=== PATIENT | female | born 1985 | race American Indian/Alaskan Native ===

== ENCOUNTER 2017-01-28 09:20 | Emergency (ER) | payer BC, OTHER ==
[2017-01-28 10:33] LABS: Basophils % (Auto) 0.7 % (0.0-1.8); Hematocrit 40.1 % (30.3-42.9); Hemoglobin 13.2 gm/dl (10.1-14.3); Mean Corpuscular HGB Conc 33 % (30-34); Mean Corpuscular Hemoglobin 29 pg (28-32); Mean Corpuscular Volume 88 fl (79-97); Platelet Count 304 K/mm3 (140-440); Red Blood Count 4.56 M/mm3 (3.65-5.03); Red Cell Distribution Width 13.9 % (13.2-15.2); White Blood Count 4.3 K/mm3 (4.5-11.0)
[2017-01-28 11:59] LABS: Bilirubin,Urine NEG (Negative); Blood,Urine LG (Negative); Ketones,Urine NEG (Negative); Leukocyte Esterase,Urine NEG (Negative); Mucus,Urine 1+ /HPF; Nitrite,Urine NEG (Negative); Urobilinogen,Urine < 2.0 mg/dL (<2.0)
[2017-01-28 12:02] LABS: RBC,Urine > 182.0 /HPF (0.0-6.0)
--- NOTE | 2017-01-28 12:41 | Ultrasound Report ---
ULTRASOUND OB LESS THAN 14 WEEKS FETUS ULTRASOUND OB TRANSVAGINAL HISTORY: Vaginal bleeding. TECHNIQUE: Transabdominal and transvaginal ultrasound with color doppler interrogation. No comparison. The uterus is anteverted and measures 9.0 x 5.2 x 5.1 cm. No uterine mass is appreciated. The endometrial stripe measures 5 mm. No intrauterine gestational sac or heart tones could be demonstrated. The cervix is closed. An approximate 5 mm nabothian cyst is noted. The right ovary measures 2.9 x 1.6 x 3.2 cm. No mass or cyst. The left ovary measures 4.1 x 2.1 x 3.4 cm. An ill-defined 9 mm cystic lesion is identified in the left ovary. This may represent a small cyst or dominant follicle. No pole or ring of fire on color Doppler. IMPRESSION: No intrauterine is visualized at this time. This could represent a spontaneous . Please note an ectopic is not entirely excluded at this time. Please correlate with the patient's clinical presentation and laboratory values.
--- NOTE | 2017-01-28 13:51 | Emergency Department Report ---
Entered by SHAHZAD COTTO, acting as scribe for RONNELL MITCHELL NP. ED Female HPI - General Chief complaint: Urogenital-Female Stated complaint: POSSIBLE MISCARRIAGE Source: patient Mode of arrival: Ambulatory Limitations: No Limitations - History of Present Illness Initial comments: 31 y/o female that is about 4 weeks with a PMHx of asthma presents to the ED c/o bright red vaginal bleeding with clots that began last night, worsening this morning at 10:00. Patient reports associated 10/10 sharp low back pain x last night and lower abdominal pain x this morning, but she denies nausea, vomiting, fever, and chills. Patient states she confirmed her with an at home test. Notes her OB is Dr. Yoan Dove. She states she hasn't been seen by her OB for this , because they usually see women that are at least 6/7 weeks . A1. Notes she bled during the early term of her first born's . LMP 12/26/2016. Reports she has irregular cycles. Denies a possible exposure to an STD. Allergic to doxycline, sulfamethoxazole, and trimethoprim. MD Complaint: vaginal bleeding -: Last night Location: suprapubic Radiation: non-radiating Severity: mild Severity scale (0 -10): 3 Quality: aching Consistency: constant Improves with: none Worsens with: none Are you Now?: Yes Last Menstrual Period: 12/26/16 EDC: 10/02/17 Associated Symptoms: denies other symptoms, vaginal bleeding, abdominal pain, other (low back pain). denies: vaginal discharge, nausea/vomiting, fever/chills , headaches, loss of appetite, dysuria, hematuria, rash, seizure, shortness of breath, syncope, weakness - Related Data Sexually active: Yes : 3 Para: 1 () A: 1 (by choice) Previous Rx's Medication Instructions Recorded Last Taken Type Acetaminophen/Codeine 1 tab PO Q6H PRN #10 tab 07/23/14 Unknown Rx [Acetaminophen-Codeine #3 TAB] Phenazopyridine [Pyridium] 200 mg PO PC #5 tablet 07/23/14 Unknown Rx Acetaminophen [Acetaminophen TAB] 1,000 mg PO Q6HR PRN #60 tablet 01/28/17 Unknown Rx Allergies Allergy/AdvReac Type Severity Reaction Status Date / Time doxycycline Allergy Unknown Verified 07/23/14 10:20 sulfamethoxazole Allergy Itching Verified 07/23/14 10:20 [From Bactrim] trimethoprim [From Bactrim] Allergy Itching Verified 07/23/14 10:20 ED Review of Systems Comment: All other systems reviewed and negative Constitutional: denies: chills, fever Eyes: denies: eye pain, eye discharge, vision change ENT: denies: ear pain, throat pain Respiratory: denies: cough, shortness of breath, wheezing Cardiovascular: denies: chest pain, palpitations Endocrine: no symptoms reported Gastrointestinal: abdominal pain (lower abdominal pain). denies: nausea, vomiting, diarrhea Genitourinary: other (vaginal bleeding). denies: urgency, dysuria, frequency, hematuria, discharge, abnormal menses, dyspareunia Musculoskeletal: back pain (low back pain). denies: joint swelling, arthralgia , myalgia Skin: denies: rash, lesions Neurological: denies: headache, weakness, numbness, paresthesias, confusion, abnormal gait, vertigo Psychiatric: denies: anxiety, depression Hematological/Lymphatic: denies: easy bleeding, easy bruising ED Past Medical Hx - Past Medical History Previous Medical History?: Yes Hx Asthma: Yes - Surgical History Past Surgical History?: Yes Additional Surgical History: - Family History Family history: no significant - Social History Smoking Status: Never Smoker Substance Use Type: Alcohol - Medications Home Medications: Home Medications Medication Instructions Recorded Confirmed Last Taken Type Acetaminophen/Codeine 1 tab PO Q6H PRN #10 tab 07/23/14 Unknown Rx [Acetaminophen-Codeine #3 TAB] Phenazopyridine [Pyridium] 200 mg PO PC #5 tablet 07/23/14 Unknown Rx Acetaminophen [Acetaminophen TAB] 1,000 mg PO Q6HR PRN #60 tablet 01/28/17 Unknown Rx ED Physical Exam - General Limitations: No Limitations General appearance: alert, in no apparent distress - Head Head exam: Present: atraumatic, normocephalic - Eye Eye exam: Present: normal appearance Pupils: Present: normal accommodation - ENT ENT exam: Present: normal exam, mucous membranes moist, normal external ear exam - Neck Neck exam: Present: normal inspection, full ROM - Respiratory Respiratory exam: Present: normal lung sounds bilaterally. Absent: respiratory distress, wheezes, rales, rhonchi, stridor - Cardiovascular Cardiovascular Exam: Present: regular rate, normal rhythm, normal heart sounds. Absent: systolic murmur, diastolic murmur, rubs, gallop - GI/Abdominal GI/Abdominal exam: Present: soft, normal bowel sounds. Absent: distended, tenderness, guarding, rebound, rigid, organomegaly, mass, bruit, pulsatile mass , hernia - Rectal Rectal exam: Present: deferred - External exam: Present: normal external exam. Absent: erythema, swelling, lesions, lacerations, ecchymosis, bleeding Speculum exam: Present: vaginal bleeding (mild vaginal bleeding mild clots). Absent: vaginal discharge, foreign body, tissue, laceration Bi-manual exam: Absent: cervical motion tendernes, adnexal mass, uterine enlargement, uterine tenderness - Extremities Exam Extremities exam: Present: normal inspection, full ROM - Back Exam Back exam: Present: normal inspection, full ROM. Absent: CVA tenderness (R), CVA tenderness (L) - Neurological Exam Neurological exam: Present: alert, oriented X3 - Psychiatric Psychiatric exam: Present: normal affect, normal mood - Skin Skin exam: Present: warm, dry, intact. Absent: rash ED Course Vital Signs 01/28/17 09:53 Temperature 98.1 F Pulse Rate 77 Respiratory 14 Rate Blood Pressure 129/84 O2 Sat by Pulse 100 Oximetry ED Medical Decision Making - Lab Data Result diagrams: 01/28/17 10:04 Laboratory Tests 01/28/17 01/28/17 01/28/17 10:04 10:04 10:04 WBC 4.3 L RBC 4.56 Hgb 13.2 Hct 40.1 MCV 88 MCH 29 MCHC 33 RDW 13.9 Plt Count 304 Lymph % (Auto) 40.3 H [place] % (Auto) 9.6 H Eos % (Auto) 1.0 Baso % (Auto) 0.7 Lymph # 1.7 [place] # 0.4 Eos # 0.0 Baso # 0.0 Seg Neutrophils % 48.4 Seg Neutrophils # 2.1 HCG, Quant 23.41 H Urine Color Urine Turbidity Urine pH Ur Specific [place] Urine Protein Urine Glucose (UA) Urine Ketones Urine Blood Urine Nitrite Urine Bilirubin Urine Urobilinogen Ur Leukocyte Esterase Urine WBC (Auto) Urine RBC (Auto) U Epithel Cells (Auto) Urine Mucus Blood Type A POSITIVE Antibody Screen Negative 01/28/17 11:42 WBC RBC Hgb Hct MCV MCH MCHC RDW Plt Count Lymph % (Auto) [place] % (Auto) Eos % (Auto) Baso % (Auto) Lymph # [place] # Eos # Baso # Seg Neutrophils % Seg Neutrophils # HCG, Quant Urine Color Yellow Urine Turbidity Slightly-cloudy Urine pH 6.0 Ur Specific [place] 1.025 Urine Protein 30 mg/dl Urine Glucose (UA) Neg Urine Ketones Neg Urine Blood Lg Urine Nitrite Neg Urine Bilirubin Neg Urine Urobilinogen < 2.0 Ur Leukocyte Esterase Neg Urine WBC (Auto) 2.0 Urine RBC (Auto) > 182.0 U Epithel Cells (Auto) 1.0 Urine Mucus 1+ Blood Type Antibody Screen - Medical Decision Making 31 y/o female that is about 4 weeks with a PMHx of asthma presents to the ED c/o bright red vaginal bleeding with clots that began last night, worsening this morning at 10:00. Patient reports associated 10/10 sharp low back pain x last night and lower abdominal pain x this morning, but she denies nausea, vomiting, fever, and chills. Patient states she confirmed her with an at home test. Notes her OB is Dr. Yoan Dove. She states she hasn't been seen by her OB for this , because they usually see women that are at least 6/7 weeks . A1. Notes she bled during the early term of her first born's . LMP 12/26/2016. Reports she has irregular cycles. Denies a possible exposure to an STD. Allergic to doxycline, sulfamethoxazole, and trimethoprim. 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 Dove , pt given discharge instructions on spontaneous and symptoms to return to emergency, pt verbalized agreement and understanding with discharge plan. 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
[2017-01-28 13:57] VITALS: BP 124/90
== END 2017-01-28 14:04 | disposition home or self-care (01) ==
LOC: ED 09:20
DX: O03.9 Complete or unspecified spontaneous abortion without complication (principal); Z3A.01 Less than 8 weeks gestation of pregnancy
CPT/HCPCS: 36415; 76801; 76817; 81001; 84702; 85025; 86850; 86900; 86901; 87210; 87591

== ENCOUNTER 2017-12-20 09:36 | Emergency (ER) | payer OTHER ==
[2017-12-20 10:13] VITALS: BP 129/81
[2017-12-20 11:04] LABS: Bacteria,Urine 4+ /HPF (Negative); Bilirubin,Urine NEG (Negative); Blood,Urine NEG (Negative); Color,Urine Yellow (Yellow); Mucus,Urine 3+ /HPF; Urobilinogen,Urine < 2.0 mg/dL (<2.0)
[2017-12-20] MEDS ORDERED: REGLAN IV ONE (11:53)
[2017-12-20] MEDS ORDERED: ZOFRAN IV ONE ×2 (11:53→15:56)
[2017-12-20] MEDS ORDERED: D5NS 1,000 ML IV SCH (12:00)
--- NOTE | 2017-12-20 12:23 | Emergency Department Report ---
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 Patient states she has significant hyperemesis with each one of her pregnancies. She does have a history of 2 miscarriages. She denies abdominal pain, vaginal discharge, vaginal bleeding. Patient would anti-emetics and IV fluids. On physical exam the patient has dry mucous membranes and slightly tachycardic otherwise normal physical exam. Carbitol over to the mid-level provider with consultation provided by me as needed
[2017-12-20 12:49] LABS: Basophils % (Auto) 0.5 % (0.0-1.8); Eosinophils % (Auto) 0.5 % (0.0-4.3); Hematocrit 38.3 % (30.3-42.9); Hemoglobin 13.1 gm/dl (10.1-14.3); Lymphocytes # (Auto) 1.8 K/mm3 (1.2-5.4); Lymphocytes % (Auto) 28.7 % (13.4-35.0); Mean Corpuscular HGB Conc 34 % (30-34); Mean Corpuscular Hemoglobin 30 pg (28-32); Mean Corpuscular Volume 88 fl (79-97); Monocytes # (Auto) 0.6 K/mm3 (0.0-0.8); Monocytes % (Auto) 10.3 % (0.0-7.3); Platelet Count 284 K/mm3 (140-440); Red Blood Count 4.37 M/mm3 (3.65-5.03); Red Cell Distribution Width 13.8 % (13.2-15.2)
--- NOTE | 2017-12-20 12:51 | Emergency Department Report ---
ED HPI - General Chief complaint: Abdominal Pain Stated complaint: /BLOOD DIZZY Time Seen by Provider: 12/20/17 11:40 Source: patient Mode of arrival: Ambulatory Limitations: No Limitations - History of Present Illness Initial comments: This is a 32-year-old female nontoxic, well nourished in appearance, no acute signs of distress presents to the ED with c/o of nausea, vomiting and pelvic pain x1 day. Patient stated denies any vaginal bleeding. Patient denies any vaginal discharge or foul odor. Patient denies any nausea, vomiting, chest pain, shortness of breathe, fever, chills, headache, stiff neck, numbness, tingling. Patient denies any urinary symptoms. Patient stated allergies to Doxy and Bactrim. Denies PMH. MD Complaint: abdominal pain, other (nasuea/vomiting) -: days(s) (1) Location: pelvis Radiation: none Severity: mild Severity scale (0 -10): 3 Quality: cramping Consistency: intermittent Improves with: none Worsens with: none Associated symptoms: nausea/vomiting, abdominal pain. denies: vaginal bleeding , vaginal discharge, dysuria, headache, malaise, dysparuenia, rash, seizure, shortness of breath, syncope, weakness Vaginal bleeding: none :: Yes Pre- care: followed by OB (Dr. Dove) - Related Data Previous Rx's Medication Instructions Recorded Last Taken Type Acetaminophen/Codeine 1 tab PO Q6H PRN #10 tab 07/23/14 Unknown Rx [Acetaminophen-Codeine #3 TAB] Phenazopyridine [Pyridium] 200 mg PO PC #5 tablet 07/23/14 Unknown Rx Acetaminophen [Acetaminophen TAB] 1,000 mg PO Q6HR PRN #60 tablet 01/28/17 Unknown Rx Doxylamine Succinate/Vit B6 1 each PO Q8H PRN #30 tablet. 12/20/17 Unknown Rx [Elie Dior 10-10 mg Tablet] Metoclopramide [Reglan] 10 mg PO TID PRN #60 tab 12/20/17 Unknown Rx Ondansetron [Zofran Odt] 4 mg PO Q8HR PRN #20 tab.rapdis 12/20/17 Unknown Rx Allergies Allergy/AdvReac Type Severity Reaction Status Date / Time doxycycline Allergy Unknown Verified 07/23/14 10:20 sulfamethoxazole Allergy Itching Verified 07/23/14 10:20 [From Bactrim] trimethoprim [From Bactrim] Allergy Itching Verified 07/23/14 10:20 ED Review of Systems ROS: Stated complaint: /BLOOD DIZZY Other details as noted in HPI Constitutional: denies: chills, fever Eyes: denies: eye pain, eye discharge, vision change ENT: denies: ear pain, throat pain Respiratory: denies: cough, shortness of breath, wheezing Cardiovascular: denies: chest pain, palpitations Endocrine: no symptoms reported Gastrointestinal: abdominal pain, nausea, vomiting. denies: diarrhea Genitourinary: denies: urgency, dysuria, discharge Musculoskeletal: denies: back pain, joint swelling, arthralgia Skin: denies: rash, lesions Neurological: denies: headache, weakness, paresthesias Psychiatric: denies: anxiety, depression Hematological/Lymphatic: denies: easy bleeding, easy bruising ED Past Medical Hx - Past Medical History Previous Medical History?: Yes Hx Asthma: Yes - Surgical History Past Surgical History?: Yes Additional Surgical History: - Social History Smoking Status: Never Smoker Substance Use Type: None - Medications Home Medications: Home Medications Medication Instructions Recorded Confirmed Last Taken Type Acetaminophen/Codeine 1 tab PO Q6H PRN #10 tab 07/23/14 Unknown Rx [Acetaminophen-Codeine #3 TAB] Phenazopyridine [Pyridium] 200 mg PO PC #5 tablet 07/23/14 Unknown Rx Acetaminophen [Acetaminophen TAB] 1,000 mg PO Q6HR PRN #60 tablet 01/28/17 Unknown Rx Doxylamine Succinate/Vit B6 1 each PO Q8H PRN #30 tablet.dr 12/20/17 Unknown Rx [Elie Dior 10-10 mg Tablet] Metoclopramide [Reglan] 10 mg PO TID PRN #60 tab 12/20/17 Unknown Rx Ondansetron [Zofran Odt] 4 mg PO Q8HR PRN #20 tab.rapdis 12/20/17 Unknown Rx ED Physical Exam - General Limitations: No Limitations General appearance: alert, in no apparent distress - Head Head exam: Present: atraumatic, normocephalic - Eye Eye exam: Present: normal appearance Pupils: Present: normal accommodation - ENT ENT exam: Present: normal exam, mucous membranes moist - Neck Neck exam: Present: normal inspection, full ROM - Respiratory Respiratory exam: Present: normal lung sounds bilaterally. Absent: respiratory distress, wheezes, rales, rhonchi, stridor, chest wall tenderness, accessory muscle use, decreased breath sounds, prolonged expiratory - Cardiovascular Cardiovascular Exam: Present: regular rate, normal rhythm, normal heart sounds. Absent: bradycardia, tachycardia, irregular rhythm, systolic murmur, diastolic murmur, rubs, gallop - GI/Abdominal GI/Abdominal exam: Present: soft, tenderness (pelvic area), normal bowel sounds. Absent: distended, guarding, rebound, rigid, diminished bowel sounds - Expanded GI/Abdominal Exam Expanded GI/Abdominal exam: Absent: psoas sign, obturator sign, heel tap sign, Walden's sign, Rovsing's sign, tenderness at Mcburney's Point, ascites - Rectal Rectal exam: Present: deferred - Extremities Exam Extremities exam: Present: normal inspection, full ROM, normal capillary refill. Absent: tenderness - Back Exam Back exam: Present: normal inspection, full ROM. Absent: tenderness, CVA tenderness (R), CVA tenderness (L), muscle spasm, paraspinal tenderness, vertebral tenderness, rash noted - Neurological Exam Neurological exam: Present: alert, oriented X3, normal gait - Psychiatric Psychiatric exam: Present: normal affect, normal mood - Skin Skin exam: Present: warm, dry, intact, normal color. Absent: rash ED Course Vital Signs 12/20/17 12/20/17 10:10 11:35 Temperature 98.4 F Pulse Rate 84 Respiratory 16 17 Rate Blood Pressure 129/81 O2 Sat by Pulse 100 Oximetry - Reevaluation(s) Reevaluation #1: 12/20/17 13:02 Patient is speaking in full sentences with no signs of distress noted. - Consultations Consultation #1: 12/20/17 13:02 Patient has been consulted with Cirilo Welch about patient history, physical exam , and labs and examined and screened patient and agrees to ED plan of care. ED Medical Decision Making - Lab Data Result diagrams: 12/20/17 12:24 12/20/17 12:24 - Medical Decision Making This is a 32-year-old female presents with hyperemesis and pelvic cramping. Patient is stable and was examined by me and Dr. Moore. Normal abdominal exam. US OB obtained and dictated by the radiologist. Ua obtained. Patient received 1 L normal saline, Zofran and nausea vomiting subsided. A by mouth challenge has been obtained and patient able to tolerate apple juices with no nausea vomiting. Patient is discharged with Reglan. Quantative serum test obtained. Patient notified of the US report with no questions noted by the patient. Patient was instructed f/u with [facility] in 2 days to follow up with a [facility] or to emergency room for a reevaluation of serum quantative test with possible ultrasound. Labs within normal limits. Patient was referred to Follow-up with a [facility] in 3-5 days or if symptoms worsen and continue return to emergency room as soon as possible. At time of discharge, the patient does not seem toxic or ill in appearance. No acute signs of distress noted. Patient agrees to discharge treatment plan of care. No further questions noted by the patient. Critical care attestation.: If time is entered above; I have spent that time in minutes in the direct care of this critically ill patient, excluding procedure time. ED Disposition Clinical Impression: Hyperemesis gravidarum, related pelvic pain in first trimester, antepartum Disposition: DC-01 TO HOME OR SELFCARE Is pt being admited?: No Does the pt Need Aspirin: No Condition: Stable Instructions: (ED), Hyperemesis Gravidarum (ED) Additional Instructions: Follow-up with a [facility] doctor in 2-3 days or if symptoms worsen and continue return to emergency room as soon as possible. Prescriptions: Doxylamine Succinate/Vit B6 [Elie Dior 10-10 mg Tablet] 1 each PO Q8H PRN #30 tablet.dr PRN Reason: Nausea Metoclopramide [Reglan] 10 mg PO TID PRN #60 tab PRN Reason: Nausea Ondansetron [Zofran Odt] 4 mg PO Q8HR PRN #20 tab.rapdis PRN Reason: Nausea Referrals: PRIMARY CARE, [Primary Care Provider] - 3-5 Days DANIEL DOVE MD [Staff Physician] - 3-5 Days [facility] [Provider Group] - 3-5 Days Forms: Work/School Release Form(ED)
[2017-12-20 12:58] LABS: BUN/Creatinine Ratio 12; Blood Urea Nitrogen 7 mg/dL (7-17); Calcium 9.5 mg/dL (8.4-10.2); Hemolysis Index 10
--- NOTE | 2017-12-20 15:39 | Ultrasound Report ---
FINAL REPORT EXAM: US OB < = 14 WEEKS FETUS HISTORY: abdominal pain TECHNIQUE: Transabdominal and transvaginal sonography of the pelvis. PRIORS: None. FINDINGS: There is a single, live intrauterine . Ultrasound estimated gestational age is 7 weeks 0 days. Ultrasound estimated date of confinement is 08 August 2018. heart motion is detected. Small and rounded, hypoechoic foci in posterior uterine corpus measuring up to 9 mm may represent small fibroids. The right ovary measures 2.7 x 2.3 x 5.0 cm and contains a rounded, cystic focus, with overall dimensions of 2.4 x 2.3 cm and central, cystic component measuring approximately 1 cm, nonspecific. The left ovary measures 5.1 x 2.1 x 3.2 cm and is grossly unremarkable. Remainder of uterus and adnexa grossly unremarkable. IMPRESSION: 1. Single, live intrauterine . 2. Possible involuting functional cystic change in the right ovary, including corpus luteum. Clinical correlation and followup pelvic ultrasound in 6-10 weeks advised to document resolution.
== END 2017-12-20 16:07 | disposition home or self-care (01) ==
LOC: ED 09:36
DX: O21.0 Mild hyperemesis gravidarum (principal); O26.891 Other specified pregnancy related conditions, first trimester; R10.2 Pelvic and perineal pain; Z3A.01 Less than 8 weeks gestation of pregnancy; J45.909 Unspecified asthma, uncomplicated; Z88.2 Allergy status to sulfonamides; Z88.1 Allergy status to other antibiotic agents
CPT/HCPCS: 36415; 76801; 76817; 80048; 81001; 84702; 85025; 96361; 96374; 96375; 96376; 99284; J2405; J2765; J7042

== ENCOUNTER 2017-12-30 19:44 | Emergency (ER) | payer OTHER | END 2017-12-31 02:47 | disposition left against medical advice (07) | LOC: ED 19:44 | DX: O21.9 Vomiting of pregnancy, unspecified (principal); O26.899 Other specified pregnancy related conditions, unspecified trimester; R10.9 Unspecified abdominal pain; J45.909 Unspecified asthma, uncomplicated; Z88.1 Allergy status to other antibiotic agents; Z88.2 Allergy status to sulfonamides; Z88.8 Allergy status to other drugs, medicaments and biological substances; Z3A.00 Weeks of gestation of pregnancy not specified; Z53.21 Procedure and treatment not carried out due to patient leaving prior to being seen by health care provider ==

== ENCOUNTER 2018-06-20 14:14 | Outpatient (CLI) | payer OTHER ==
[2018-06-20] MEDS ORDERED: LACTATED RINGERS 500 ML IV ONE (15:05)
[2018-06-20 15:53] LABS: Hematocrit 30.2 % (30.3-42.9); Hemoglobin 10.1 gm/dl (10.1-14.3); Mean Corpuscular HGB Conc 33 % (30-34); Mean Corpuscular Volume 83 fl (79-97); Platelet Count 311 K/mm3 (140-440); Red Blood Count 3.63 M/mm3 (3.65-5.03)
[2018-06-20 16:40] LABS: Bacteria,Urine 3+ /HPF (Negative); Bilirubin,Urine NEG (Negative); Blood,Urine NEG (Negative); Color,Urine Yellow (Yellow); Mucus,Urine FEW /HPF; Protein,Urine <15 mg/dL mg/dL (Negative); Urobilinogen,Urine < 2.0 mg/dL (<2.0)
[2018-06-20 16:46] LABS: Alanine Aminotransferase 8 units/L (7-56); Uric Acid 2.8 mg/dL (3.5-7.6)
[2018-06-20] MEDS ORDERED: TYLENOL PO ONE (16:58)
[2018-06-20 17:52] VITALS: BP 134/80
[2018-06-20] MEDS ORDERED: ZOFRAN IV ONE (18:09)
== END 2018-06-20 18:21 | disposition home or self-care (01) ==
LOC: TRG 14:14
PROVIDERS: ATTEND Obstetrics & Gynecology
DX: O47.03 False labor before 37 completed weeks of gestation, third trimester (principal); O99.513 Diseases of the respiratory system complicating pregnancy, third trimester; O13.3 Gestational [pregnancy-induced] hypertension without significant proteinuria, third trimester; O24.419 Gestational diabetes mellitus in pregnancy, unspecified control; J45.909 Unspecified asthma, uncomplicated; Z3A.32 32 weeks gestation of pregnancy
CPT/HCPCS: 36415; 59025; 81001; 82565; 83615; 84450; 84460; 84550; 85027; J7120

== ENCOUNTER 2018-06-27 17:34 | Outpatient (CLI) | payer OTHER ==
[2018-06-27] MEDS ORDERED: LACTATED RINGERS 500 ML IV ONE (18:43)
[2018-06-27 19:37] LABS: Bilirubin,Urine NEG (Negative); Blood,Urine NEG (Negative); Color,Urine Yellow (Yellow); Mucus,Urine FEW /HPF; Protein,Urine <15 mg/dL mg/dL (Negative); Urobilinogen,Urine < 2.0 mg/dL (<2.0)
[2018-06-27] MEDS ORDERED: ZOFRAN IV ONE (20:12)
[2018-06-27 21:16] VITALS: BP 129/84
== END 2018-06-27 21:45 | disposition home or self-care (01) ==
LOC: TRG 17:34
PROVIDERS: ATTEND Obstetrics & Gynecology
DX: O47.03 False labor before 37 completed weeks of gestation, third trimester (principal); O26.893 Other specified pregnancy related conditions, third trimester; R10.9 Unspecified abdominal pain; M54.9 Dorsalgia, unspecified; Z3A.33 33 weeks gestation of pregnancy
CPT/HCPCS: 36415; 59025; 81001; 82731; 82962; 96374; J2405; J7120; 96360

== ENCOUNTER 2018-07-21 10:51 | Outpatient (CLI) | payer OTHER ==
[2018-07-21 12:19] LABS: Hematocrit 30.6 % (30.3-42.9); Hemoglobin 10.2 gm/dl (10.1-14.3); Mean Corpuscular HGB Conc 33 % (30-34); Mean Corpuscular Volume 80 fl (79-97); Platelet Count 335 K/mm3 (140-440); Red Blood Count 3.83 M/mm3 (3.65-5.03); Red Cell Distribution Width 16.2 % (13.2-15.2)
[2018-07-21 12:22] LABS: Bacteria,Urine 3+ /HPF (Negative); Bilirubin,Urine NEG (Negative); Blood,Urine NEG (Negative); Color,Urine Straw (Yellow); Protein,Urine <15 mg/dL mg/dL (Negative); Urobilinogen,Urine < 2.0 mg/dL (<2.0)
[2018-07-21] MEDS ORDERED: LACTATED RINGERS 500 ML IV ONE (12:24)
[2018-07-21 12:40] LABS: Alanine Aminotransferase 12 units/L (7-56); Uric Acid 3.2 mg/dL (3.5-7.6)
[2018-07-21 13:04] VITALS: BP 130/85
== END 2018-07-21 13:30 | disposition home or self-care (01) ==
LOC: TRG 10:51
PROVIDERS: ATTEND Obstetrics & Gynecology
DX: O47.03 False labor before 37 completed weeks of gestation, third trimester (principal); Z3A.36 36 weeks gestation of pregnancy
CPT/HCPCS: 36415; 59025; 81001; 82565; 82962; 83615; 84450; 84460; 84550; 85027

== ENCOUNTER 2018-07-27 09:45 | Outpatient (CLI) | payer OTHER ==
[2018-07-27] MEDS ORDERED: LACTATED RINGERS 1,000 ML IV SCH (11:00)
[2018-07-27 12:03] LABS: Basophils % (Auto) 0.4 % (0.0-1.8); Eosinophils % (Auto) 0.8 % (0.0-4.3); Hematocrit 26.3 % (30.3-42.9); Hemoglobin 8.7 gm/dl (10.1-14.3); Lymphocytes # (Auto) 1.2 K/mm3 (1.2-5.4); Lymphocytes % (Auto) 19.9 % (13.4-35.0); Mean Corpuscular HGB Conc 33 % (30-34); Mean Corpuscular Volume 79 fl (79-97); Monocytes # (Auto) 0.6 K/mm3 (0.0-0.8); Platelet Count 295 K/mm3 (140-440); Red Blood Count 3.35 M/mm3 (3.65-5.03); Red Cell Distribution Width 16.7 % (13.2-15.2)
[2018-07-27 12:22] LABS: Alanine Aminotransferase 12 units/L (7-56); Albumin 3.1 g/dL (3.9-5); BUN/Creatinine Ratio 8; Blood Urea Nitrogen 4 mg/dL (7-17); Calcium 8.8 mg/dL (8.4-10.2); Hemolysis Index 2; Uric Acid 3.4 mg/dL (3.5-7.6)
[2018-07-27 12:30] LABS: Alanine Aminotransferase 13 units/L (7-56); Uric Acid 3.4 mg/dL (3.5-7.6)
[2018-07-27 12:46] LABS: Bacteria,Urine 3+ /HPF (Negative); Bilirubin,Urine NEG (Negative); Blood,Urine NEG (Negative); Color,Urine Yellow (Yellow); Mucus,Urine FEW /HPF; Protein,Urine <15 mg/dL mg/dL (Negative); Urobilinogen,Urine < 2.0 mg/dL (<2.0)
[2018-07-27 14:21] VITALS: BP 136/98
== END 2018-07-27 14:48 | disposition home or self-care (01) ==
LOC: TRG 09:45
PROVIDERS: ATTEND Obstetrics & Gynecology
DX: O21.2 Late vomiting of pregnancy (principal); O47.1 False labor at or after 37 completed weeks of gestation; O26.893 Other specified pregnancy related conditions, third trimester; R19.7 Diarrhea, unspecified; M54.9 Dorsalgia, unspecified; Z3A.37 37 weeks gestation of pregnancy
CPT/HCPCS: 36415; 80053; 81001; 82565; 83615; 84450; 84460; 84550; 85025; 96360; 96361; J7120

== ENCOUNTER 2018-07-29 13:11 | Inpatient (IN) | payer OTHER ==
[2018-07-29 14:59] LABS: Bacteria,Urine 4+ /HPF (Negative); Bilirubin,Urine NEG (Negative); Blood,Urine NEG (Negative); Color,Urine Yellow (Yellow); Mucus,Urine FEW /HPF; Protein,Urine <15 mg/dL mg/dL (Negative); Urobilinogen,Urine < 2.0 mg/dL (<2.0)
[2018-07-29 16:16] LABS: Hematocrit 27.9 % (30.3-42.9); Hemoglobin 9.3 gm/dl (10.1-14.3); Mean Corpuscular HGB Conc 33 % (30-34); Mean Corpuscular Volume 78 fl (79-97); Platelet Count 320 K/mm3 (140-440); Red Blood Count 3.57 M/mm3 (3.65-5.03); Red Cell Distribution Width 16.5 % (13.2-15.2)
[2018-07-29 16:31] LABS: Alanine Aminotransferase 13 units/L (7-56); Uric Acid 3.4 mg/dL (3.5-7.6)
[2018-07-29] MEDS ORDERED: LACTATED RINGERS 1,000 ML ONE (17:57)
[2018-07-29] MEDS ORDERED: REGLAN IV ONE (18:01)
[2018-07-29] MEDS ORDERED: PEPCID IV ONE ×2 (18:01→22:18)
[2018-07-29] MEDS ORDERED: BICITRA PO ONE (18:01)
--- NOTE | 2018-07-29 18:07 | History and Physical Report ---
History of Present Illness Date of examination: 07/29/18 Chief complaint: Elevated BP's History of present illness: Pt is a 33yo BF EDC 08/12/18; EGA 38 0/7 weeks presents from [facility] for deli very due to elevated BPs in office 153/100 and 166/100. She complains of a headache and extremity swelling. She received care at [facility] since and co-managed by [facility] for LGA, GDM and history of Preeclampsia. She was scheduled for a Repeat C Section 08/05/18, but we will proceed with her Repeat C Section today. Past History Past Medical History: diabetes (GDM) Past Surgical History: section Social history: no significant social history, single - Obstetrical History Expected Date of Delivery: 08/12/18 Actual Gestation: 38 Week(s) 1 Day(s) : 4 Medications and Allergies Allergies Allergy/AdvReac Type Severity Reaction Status Date / Time doxycycline Allergy Unknown Verified 07/23/14 10:20 sulfamethoxazole Allergy Itching Verified 07/23/14 10:20 [From Bactrim] trimethoprim [From Bactrim] Allergy Itching Verified 07/23/14 10:20 Home Medications Medication Instructions Recorded Confirmed Last Taken Type Acetaminophen/Codeine 1 tab PO Q6H PRN #10 tab 07/23/14 Unknown Rx [Acetaminophen-Codeine #3 TAB] Phenazopyridine [Pyridium] 200 mg PO PC #5 tablet 07/23/14 Unknown Rx Acetaminophen [Acetaminophen TAB] 1,000 mg PO Q6HR PRN #60 tablet 01/28/17 Unknown Rx Doxylamine Succinate/Vit B6 1 each PO Q8H PRN #30 tablet. 12/20/17 Unknown Rx [Elie Dior 10-10 mg Tablet] Metoclopramide [Reglan] 10 mg PO TID PRN #60 tab 12/20/17 Unknown Rx Ondansetron [Zofran Odt] 4 mg PO Q8HR PRN #20 tab.rapdis 12/20/17 Unknown Rx Ferrous Sulfate [Feosol 325 MG tab] 325 mg PO BID #60 tablet 07/29/18 Unknown Rx HYDROcodone/APAP 5-325 [[place] 1 each PO Q6HR PRN #30 tablet 07/29/18 Unknown Rx 5/325] Ibuprofen [Motrin] 800 mg PO Q8HR PRN #30 tablet 07/29/18 Unknown Rx Pnv No.95/Ferrous Fum/Folic AC 1 each PO DAILY #30 tablet 07/29/18 Unknown Rx [ Vitamin Tablet] Review of Systems All systems: negative - Vital Signs Vital signs: Vital Signs Pulse BP 86 136/83 07/29/18 13:43 07/29/18 13:43 Temp Pulse Resp BP Pulse Ox 88 155/94 07/29/18 17:43 07/29/18 17:43 - Physical Exam Cardiovascular: Regular rate Lungs: Positive: Clear to auscultation Abdomen: Positive: normal appearance, soft Genitourinary (Female): Positive: normal external genitalia Vagina: Positive: normal moisture Uterus: Positive: enlarged Extremities: Positive: normal - Obstetrical FHR: category 1 Uterine Contraction Monitor Mode: External Results Result Diagrams: 07/29/18 15:35 07/29/18 15:34 Abnormal lab results 07/29/18 07/29/18 07/29/18 Range/Units 13:45 15:34 15:34 RBC 3.57 L (3.65-5.03) M/mm3 Hgb 9.3 L (10.1-14.3) gm/dl Hct 27.9 L (30.3-42.9) % MCV 78 L (79-97) fl MCH 26 L (28-32) pg RDW 16.5 H (13.2-15.2) % Creatinine 0.5 L (0.7-1.2) mg/dL Uric Acid 3.4 L (3.5-7.6) mg/dL Lactate Dehydrogenase 182 H (91-180) units/L Urine WBC (Auto) 8.0 H (0.0-6.0) /HPF All other labs normal. Ultrasound: report reviewed (BPP 12/22; MAEVE 15.58 and EFW 3853gms 92%) Assessment and Plan - Patient Problems (1) 38 weeks gestation of Onset Date: 07/29/18 Current Visit: Yes Status: Acute Plan to address problem: A: IUP @ 38 0/7 weeks Preeclampsia GDM - on Glyburide 2.5mg Previous C Section P: Admit to L&D for Repeat C Section [facility] labs Accuchecks (2) GDM (gestational diabetes mellitus) Onset Date: 07/29/18 Current Visit: Yes Status: Acute Qualifiers: Gestational diabetes mellitus control: oral hypoglycemic-controlled Trimester: third trimester Qualified Code(s): O24.415 - Gestational diabetes mellitus in , controlled by oral hypoglycemic drugs (3) Previous section Onset Date: 07/29/18 Current Visit: Yes Status: Chronic (4) Pre-eclampsia affecting puerperium Onset Date: 07/29/18 Current Visit: Yes Status: Suspected
[2018-07-29] MEDS ORDERED: LACTATED RINGERS 1,000 ML IV SCH (19:00)
[2018-07-29] MEDS ORDERED: PITOCin/NS 20 UNIT/1000ML DRIP 20 UNITS/1,000 ML BAG IV SCH (19:00)
[2018-07-29] MEDS ORDERED: ANCEF/STERILE WATER 2 GM/20 ML 2 GM/20 ML SYRINGE IV NR (19:00)
[2018-07-29 19:11] LABS: Basophils % (Auto) 0.2 % (0.0-1.8); Eosinophils # (Auto) 0.1 K/mm3 (0.0-0.4); Eosinophils % (Auto) 0.8 % (0.0-4.3); Hematocrit 28.2 % (30.3-42.9); Hemoglobin 9.3 gm/dl (10.1-14.3); Lymphocytes # (Auto) 1.8 K/mm3 (1.2-5.4); Lymphocytes % (Auto) 23.3 % (13.4-35.0); Mean Corpuscular HGB Conc 33 % (30-34); Mean Corpuscular Volume 78 fl (79-97); Monocytes # (Auto) 0.7 K/mm3 (0.0-0.8); Monocytes % (Auto) 8.5 % (0.0-7.3); Platelet Count 333 K/mm3 (140-440); Red Blood Count 3.63 M/mm3 (3.65-5.03)
[2018-07-29] MEDS ORDERED: BICITRA ONE (22:18)
[2018-07-29] MEDS ORDERED: REGLAN ONE (22:18)
--- NOTE | 2018-07-29 22:35 | Anesthesia Consultation ---
Anesthesia Consult and Med Hx Date of service: 07/29/18 - Airway Anesthetic Teeth Evaluation: Good ROM Head & Neck: Adequate Mental/Hyoid Distance: Adequate Mallampati Class: Class II Intubation Access Assessment: Probably Good - Pre-Operative Health Status ASA Pre-Surgery Classification: ASA3 Proposed Anesthetic Plan: Epidural, Spinal - Pulmonary Hx Asthma: Yes (inhaler- last used in spring) - Cardiovascular System Hx Hypertension: No (PIH) - Central Nervous System Hx Seizures: No Hx Back Pain: Yes (scoliosis, h/o unsuccessful CSE (2011)) Hx Psychiatric Problems: No - Endocrine Hx Renal Disease: Yes (hx kidney stones) Hx Hypothyroidism: No Hx Hyperthyroidism: No - Hematic Hx Anemia: No Hx Sickle Cell Disease: No - Other Systems Hx Alcohol Use: No Hx Obesity: Yes (BMI 37)
[2018-07-29] MEDS ORDERED: NARCAN 0.4 MG/1 ML IV PRN (22:36)
[2018-07-29] MEDS ORDERED: PHENERGAN PO PRN (22:36)
[2018-07-29] MEDS ORDERED: ZOFRAN IV PRN (22:36)
[2018-07-29] MEDS ORDERED: DILAUDID IV PRN (22:36)
[2018-07-29] MEDS ORDERED: BENADRYL IV PRN (22:36)
[2018-07-29] MEDS ORDERED: PHENERGAN PR PRN (22:36)
--- NOTE | 2018-07-29 22:36 | Anesthesia Day of Surgery ---
Anesthesia Day of Surgery - Day of Surgery Patient Examined: Yes Patient H&P Reviewed: Yes Patient is NPO: Yes
[2018-07-29] MEDS ORDERED: WATER FOR IRRIG STERILE IR ONE (23:00)
[2018-07-29] MEDS ORDERED: SODIUM CHLORIDE FLUSH SYRINGE 10 ML IV PRN (23:00)
[2018-07-29] MEDS ORDERED: NACL 0.9% IR ONE (23:00)
[2018-07-29] MEDS: PITOCin/NS 20 UNIT/1000ML DRIP 20 UNITS/1,000 ML BAG IV SCH (23:29)
[2018-07-29] MEDS ORDERED: DILAUDID ONE (23:43)
[2018-07-29] MEDS ORDERED: NEO SYNEPHRINE/NS Syringe(OR USE) IV ONE (23:43)
[2018-07-29] MEDS ORDERED: XYLOCAINE MPF 2% ONE (23:48)
--- NOTE | 2018-07-30 00:06 | Operative Report ---
Operative Report Operative Report: Date of procedure: 07/30/2018 Pre-operative diagnosis: 1. Intrauterine at 38-0/7 weeks 2. Previo us 3. Preeclampsia 4. Gestational diabetes Post-operative diagnosis: Same Procedure name(s): Repeat low transverse section Surgeon: Yoan Dove MD Instructor Adjunct Surgical Technician: None Anesthesia: Spinal anesthesia by Dr. Reeves EBL: 1000 mL Findings: A 3674 g female Apgars 8 at 1 minute 9 at 5 minutes. Clear amniotic fluids. Normal uterus with lower uterine segment adhesions. Normal tubes and ovaries bilaterally. Procedure: After the patient was prepped and draped in usual sterile fashion, and after satisfactory level of epidural anesthesia was obtained, the skin knife was used to make a transverse skin incision through the previous skin scar. The incision was excised down to layer of the fascia, which was nicked in the midline and extended laterally using the Bovie cautery. The rectus muscles were dissected off the rectus fascia both superiorly and inferiorly. The rectus bellies in the midline, and the peritoneum was entered under direct visualization. The peritoneal incision was extended superiorly and inferiorly. A bladder flap was created and the bladder blade was then placed. The uterus was scored in a curvilinear linear fashion, entered in the midline revealing clear amniotic fluid. The infant's head was delivered onto the surgical field with the aid of a vacuum, and the oropharynx and nasopharynx were bulb suctioned. The rest of the infant's body was delivered, cord was doubly clamped and cut and the infant was handed to the waiting respiratory team. The placenta was manually removed from the uterus, and the uterus removed from its normal anatomical position. After gentle uterine lavage, the incision was inspected and found to be without extensions. It was then closed in 2 layers using 0 Vicryl suture in a running interlocking fashion, the second layer imbricating the first. After good hemostasis was achieved, copious amounts or irrigation was performed, and the gutters were suctioned free of blood and blood clots. The Tisseel sealant was sprayed across the uterine incision. The uterus was then returned to its normal anatomical position, and after excellent hemostasis assured, the peritoneum was re-approximated using 3-0 Vicryl suture in a running interlocking fashion, and then the rectus muscles were re-approximated using 3-0 Vicryl suture in a [id number] configuration. The fascia was then re-appr oximated using 0 Vicryl suture in running interlocking fashion. The subcutaneous layer was made hemostatic using Bovie cautery, the Tisseel sealant was sprayed across the fascial incision and the skin edges re-approximated using 4-0 Vicryl suture in a sub-cuticular fashion. Patient tolerated the procedure well was transported to recovery in stable condition.
[2018-07-30] MEDS ORDERED: TUCKS PAD TP PRN (00:08)
[2018-07-30] MEDS ORDERED: D50W (25GM) Syringe IV PRN (00:08)
[2018-07-30] MEDS ORDERED: NARCAN 0.4 MG/1 ML IV PRN (00:08)
[2018-07-30] MEDS ORDERED: LANSINOH TP PRN (00:08)
[2018-07-30] MEDS ORDERED: APRESOLINE IV ONE (00:21)
[2018-07-30] MEDS: PITOCin/NS 20 UNIT/1000ML DRIP 20 UNITS/1,000 ML BAG IV SCH ×2 (00:31→00:47)
[2018-07-30] MEDS ORDERED: SODIUM CHLORIDE FLUSH SYRINGE 10 ML IV PRN (01:00)
[2018-07-30] MEDS ORDERED: D5LR 1,000 ML IV SCH (01:00)
[2018-07-30] MEDS: DILAUDID IV PRN ×2 (01:05→01:17)
[2018-07-30] MEDS: NORMODYNE PO SCH ×3 (01:57→22:41)
[2018-07-30] MEDS: TORADOL IV PRN ×2 (02:13→15:41)
[2018-07-30] MEDS: ANCEF/NS 1 GM/50 ML 1 GM/50 ML BAG IV SCH ×2 (03:16→13:16)
--- NOTE | 2018-07-30 07:08 | Post Anesthesia Evaluation ---
- Post Anesthesia Evaluation Patient Participated: Yes Airway Patent: Yes Stable Respiratory Function: Yes Nausea/Vomiting: No Temp > 96.8F: Yes Pain Manageable: Yes Adequeate Hydration: Yes Anesthesia Complications: No Block Receding Appropriately: Yes Patient on Ventilator: No
[2018-07-30] MEDS: PERCOCET 5/325 PO PRN ×2 (11:30→21:07)
[2018-07-30] MEDS: PRENATAL VITAMIN PO SCH (13:17)
[2018-07-30] MEDS: FEOSOL PO SCH (13:17)
[2018-07-30] MEDS ORDERED: MILK OF MAGNESIA PO PRN (15:40)
[2018-07-30] MEDS: MYLICON PO PRN ×2 (15:51→22:44)
--- NOTE | 2018-07-30 15:55 | Progress Note ---
Assessment and Plan A: /postop day of delivery S/P repeat low transverse section. Anemia secondary to and blood loss. Preeclampsia. GDM. P: Encouraged ambulation. Simethicone and MOM. Patient to drink some warm liquids. Advance diet (diabetic) when passing gas. Iron supplementation. Subjective - Subjective Date of service: 07/30/18 Principal diagnosis: /postop day of delivery S/P repeat LTCS Interval history: /postop day of delivery S/P repeat low transverse section. Doing well. Has not passed gas yet. Feels she needs to. Tolerating liquid diet without nausea or vomiting. Voiding without difficulty. Ambulating well. Patient reports small amount of lochia. She denies headache, visual disturbance, nausea or vomiting, abdominal pain, or swelling. Patient reports: appetite normal, voiding normally, pain well controlled, ambulating normally, no dizzy ambulation, no nauseated : doing well Objective - Vital Signs Latest vital signs: Vital Signs Temp Pulse Resp BP BP Pulse Ox 07/30/18 15:41 20 07/30/18 11:30 20 07/30/18 07:25 98.1 F 96 H 20 135/87 100 07/30/18 05:54 20 07/30/18 04:00 98.5 F 101 H 18 132/88 07/30/18 02:13 20 07/30/18 01:57 97.9 F 99 H 150/90 07/30/18 01:17 22 07/30/18 01:13 98.0 F 98 H 22 143/88 99 07/30/18 01:05 18 07/30/18 00:58 93 H 22 145/88 99 07/30/18 00:43 96 H 15 135/96 99 07/30/18 00:28 96 H 15 147/60 99 07/30/18 00:26 87 145/93 07/30/18 00:13 97.7 F 87 16 145/93 100 07/29/18 22:43 94 H 155/95 07/29/18 22:28 97 H 161/110 07/29/18 22:13 79 154/96 07/29/18 21:58 99 H 150/97 07/29/18 21:43 96 H 143/89 07/29/18 21:13 76 154/94 07/29/18 20:58 81 151/94 03/15/19 19:59 83 156/94 07/29/18 19:43 93 H 142/95 07/29/18 19:28 84 144/92 07/29/18 19:14 85 158/89 07/29/18 18:58 78 154/98 07/29/18 18:43 87 153/97 07/29/18 18:28 75 156/92 07/29/18 18:13 82 166/96 07/29/18 17:43 88 155/94 07/29/18 17:28 76 169/93 07/29/18 17:13 96 H 143/102 07/29/18 16:58 81 177/100 07/29/18 16:43 81 145/86 07/29/18 16:28 93 H 149/95 07/29/18 16:13 86 138/87 07/29/18 15:58 96 H 134/76 Intake and Output 07/29/18 07/30/18 07/30/18 23:59 07:59 15:59 Intake Total 500 890 200 Output Total 600 Balance 500 290 200 Intake: IV 500 650 ANCEF/NS 1 GM/50 ML 1 gm 50 In 50 ml @ 100 mls/hr IV Q8H [facility] Rx#:[id number] Oral 200 Intake, Free Water 240 Output: Urine 600 Indwelling Catheter 500 Other: Total, Intake Amount 200 Total, Output Amount 500 Estimated Blood Loss 1,000 - Exam Cardiovascular: Present: Regular rate, Normal S1, Normal S2 Lungs: Present: Clear to auscultation Abdomen: Present: normal appearance, soft, normal bowel sounds. Absent: distention, tenderness, guarding, rigidity Uterus: Present: normal, firm, fundal height below umbilicus. Absent: bogginess, tenderness Extremities: Present: normal, edema (mild pedal). Absent: tenderness Incision: Present: normal, dry, intact, dressed - Labs Labs: Abnormal lab results 07/29/18 07/29/18 07/29/18 Range/Units 15:34 15:34 15:35 RBC 3.57 L 3.63 L (3.65-5.03) M/mm3 Hgb 9.3 L 9.3 L (10.1-14.3) gm/dl Hct 27.9 L 28.2 L (30.3-42.9) % MCV 78 L 78 L (79-97) fl MCH 26 L 26 L (28-32) pg RDW 16.5 H 17.0 H (13.2-15.2) % [place] % (Auto) 8.5 H (0.0-7.3) % Creatinine 0.5 L (0.7-1.2) mg/dL Uric Acid 3.4 L (3.5-7.6) mg/dL Lactate Dehydrogenase 182 H (91-180) units/L
[2018-07-30 16:57] LABS: Hematocrit 23.2 % (30.3-42.9); Hemoglobin 7.7 gm/dl (10.1-14.3)
[2018-07-30] MEDS: IBUPROFEN PO PRN (22:42)
[2018-07-31] MEDS ORDERED: M-M-R II VACCINE SUB-Q ONE (00:10)
[2018-07-31] MEDS: IBUPROFEN PO PRN ×2 (05:00→10:57)
[2018-07-31] MEDS ORDERED: BOOSTRIX IM ONE (06:00)
[2018-07-31] MEDS: MYLICON PO PRN ×2 (06:50→19:03)
[2018-07-31] MEDS: NORMODYNE PO SCH ×2 (10:58→22:00)
[2018-07-31] MEDS: PRENATAL VITAMIN PO SCH (10:59)
[2018-07-31] MEDS: NORCO 5/325 PO PRN (11:06)
[2018-07-31] MEDS: FEOSOL PO SCH (13:44)
[2018-07-31] MEDS: PERCOCET 5/325 PO PRN (18:59)
--- NOTE | 2018-07-31 23:53 | Progress Note ---
Assessment and Plan A: /postop day 1 S/P low transverse section. Anemia. P: Continue iron supplementation. Continue PO Labetalol. Subjective - Subjective Date of service: 07/31/18 Principal diagnosis: /postop day 1 S/P repeat low transverse section Interval history: /postop day 1 S/P low transverse section. Doing well. No complaints. No headaches, cough, shortness of breath, chest pain, or leg pain. Patient reports: appetite normal, voiding normally, pain well controlled, flatus, ambulating normally, no dizzy ambulation, no nauseated : doing well Objective - Vital Signs Latest vital signs: Vital Signs Temp Pulse Resp BP BP Pulse Ox 07/31/18 23:10 98.8 F 94 H 20 145/88 98 07/31/18 22:00 80 152/87 07/31/18 18:59 20 07/31/18 15:45 98.4 F 84 20 131/94 99 07/31/18 12:53 98.3 F 94 H 24 142/85 99 07/31/18 08:30 98.2 F 82 20 144/88 100 07/31/18 05:52 85 130/84 07/31/18 01:40 97.8 F 81 18 143/89 Intake and Output 07/31/18 07/31/18 07/31/18 07:59 15:59 23:59 Intake Total 720 360 240 Balance 720 360 240 Intake: Oral 360 240 Intake, Free Water 720 Other: Total, Intake Amount 240 240 # Voids Void 2 1 1 - Exam Abdomen: Present: normal appearance, soft. Absent: distention, tenderness, guarding, rigidity Uterus: Present: normal, firm, fundal height below umbilicus. Absent: bogginess, tenderness Extremities: Present: normal, edema (mild dependent edema). Absent: tenderness Incision: Present: normal, dry, intact - Labs Labs: Abnormal lab results 07/31/18 07/31/18 Range/Units 13:55 17:49 POC Glucose 146 H 69 L (70-105)
[2018-08-01] MEDS: IBUPROFEN PO PRN ×4 (00:08→19:25)
[2018-08-01] MEDS: FEOSOL PO SCH ×3 (00:08→23:54)
[2018-08-01] MEDS ORDERED: BOOSTRIX IM ONE (06:00)
[2018-08-01] MEDS: NORMODYNE PO SCH (10:00)
[2018-08-01] MEDS: PRENATAL VITAMIN PO SCH (10:00)
[2018-08-01] MEDS: MYLICON PO PRN (10:00)
[2018-08-01 13:20] LABS: Bilirubin,Urine NEG (Negative); Blood,Urine LG (Negative); Color,Urine Yellow (Yellow); Mucus,Urine FEW /HPF; Protein,Urine <15 mg/dL mg/dL (Negative); Urobilinogen,Urine < 2.0 mg/dL (<2.0)
[2018-08-01 13:24] LABS: RBC,Urine > 182.0 /HPF (0.0-6.0)
[2018-08-01 14:22] LABS: Hemoglobin 8.4 gm/dl (10.1-14.3); Mean Corpuscular HGB Conc 33 % (30-34); Mean Corpuscular Volume 80 fl (79-97); Platelet Count 341 K/mm3 (140-440); Red Blood Count 3.26 M/mm3 (3.65-5.03); Red Cell Distribution Width 17.2 % (13.2-15.2)
[2018-08-01 14:30] LABS: Uric Acid 4.1 mg/dL (3.5-7.6)
--- NOTE | 2018-08-01 15:25 | Progress Note ---
Assessment and Plan - Patient Problems (1) S/P repeat low transverse Current Visit: Yes Status: Acute Plan to address problem: POD 3 - BPs elevated Continue routine postop orders Ambulation encouraged, as tolerated (2) Pre-eclampsia Current Visit: Yes Status: Acute Plan to address problem: BPs elevated: denies headache, visual disturbances or RUQ pain Continue antihypertensive therapy: Labetalol 200mg PO BID PIH labs ordered: AST, LDH elevated Dr. Gallo consulted about plan of care. Patient to be transferred to L&D for magnesium sulfate therapy (3) Anemia due to blood loss, acute Current Visit: Yes Status: Acute Plan to address problem: Asymptomatic Continue iron therapy (4) GDM (gestational diabetes mellitus) Onset Date: 07/29/18 Current Visit: Yes Status: Acute Qualifiers: Gestational diabetes mellitus control: oral hypoglycemic-controlled Trimester: third trimester Qualified Code(s): O24.415 - Gestational diabetes mellitus in , controlled by oral hypoglycemic drugs Plan to address problem: Blood glucose stable Continue sliding scale insulin Subjective - Subjective Date of service: 08/01/18 Principal diagnosis: POD #3, s/p Repeat LTCS, Pre-eclampsia; GDM Interval history: see H&P, Operative Report, PP/[employer] Progress Notes Patient reports: appetite normal, voiding normally, pain well controlled, flatus, bowel movement, ambulating normally, other (denies headache, visual disturbances, RUQ pain), no dizzy ambulation [place]: doing well, other (breast and bottle feeding) Objective - Vital Signs Latest vital signs: Vital Signs Temp Pulse Resp BP BP Pulse Ox 08/01/18 13:35 98.2 F 87 158/94 08/01/18 08:20 98.4 F 78 20 159/103 08/01/18 06:49 18 08/01/18 05:49 18 08/01/18 01:08 18 08/01/18 00:08 18 07/31/18 23:10 98.8 F 94 H 20 145/88 98 07/31/18 22:00 80 152/87 07/31/18 19:59 18 07/31/18 18:59 20 07/31/18 15:45 98.4 F 84 20 131/94 99 Intake and Output 07/31/18 08/01/18 08/01/18 23:59 07:59 15:59 Intake Total 600 360 360 Balance 600 360 360 Intake: Oral 240 360 Intake, Free Water 360 360 Other: Total, Intake Amount 240 240 # Voids Void 1 1 1 - Exam Cardiovascular: Present: Regular rate Lungs: Present: Clear to auscultation Abdomen: Present: normal appearance, soft Vulva: both: normal Uterus: Present: normal, firm, fundal height below umbilicus Extremities: Present: normal Incision: Present: normal, intact, other (steri strips wet; all removed, incision cleaned and dried. No drainage present. Steri strips replaced.) Comments: scant lochia - Labs Labs: Abnormal lab results 07/31/18 08/01/18 08/01/18 Range/Units 17:49 13:41 13:41 RBC 3.26 L (3.65-5.03) M/mm3 Hgb 8.4 L (10.1-14.3) gm/dl Hct 26.0 L (30.3-42.9) % MCH 26 L (28-32) pg RDW 17.2 H (13.2-15.2) % POC Glucose 69 L (70-105) AST 50 H (5-40) units/L Lactate Dehydrogenase 309 H (91-180) units/L
[2018-08-01] MEDS ORDERED: MAGNESIUM SULFATE 4GM/100ML 4 GM/100 ML BAG IV ONE (16:02)
--- NOTE | 2018-08-01 16:06 | Progress Note ---
Assessment and Plan - Patient Problems (1) S/P repeat low transverse Current Visit: Yes Status: Acute (2) Eclampsia superimposed on pre-existing hypertension, delivered Current Visit: Yes Status: Acute Plan to address problem: Will start magnesium sulfate loading dose and maintenance at 2gm/hr. Monitor Mg levels, urine output, DTRs. Monitor BP. Continue labetolol 200 mg BID. (3) GDM (gestational diabetes mellitus) Onset Date: 07/29/18 Current Visit: Yes Status: Acute Qualifiers: Gestational diabetes mellitus control: oral hypoglycemic-controlled Trimester: third trimester Qualified Code(s): O24.415 - Gestational diabetes mellitus in , controlled by oral hypoglycemic drugs Plan to address problem: Will continue FS fasting and 2-hr PP. Patient is on ADA diet. (4) Anemia Current Visit: Yes Status: Acute Qualifiers: Anemia type: iron deficiency Subjective - Subjective Date of service: 08/01/18 Principal diagnosis: POD #3, s/p Repeat LTCS, Pre-eclampsia; GDM Interval history: Patient is a 33 year old who is S/P repeat C/section 2 days ago. She has a history of CHTN and was also diagnosed with superimposed pre-eclampsia on admission. Toxemia labs were normal. Her BP remained elevated but stable after the delivery. Since last night, her BP became unstable. Today, BP has been 150's/90-100's. Now, patient says that she has been having headache since last night. Toxemia labs today showed elevated LFTs. She also has GDM and stopped glyburide due to dizziness. Objective - Vital Signs Latest vital signs: Vital Signs Temp Pulse Resp BP BP Pulse Ox 08/01/18 13:35 98.2 F 87 158/94 08/01/18 08:20 98.4 F 78 20 159/103 08/01/18 06:49 18 08/01/18 05:49 18 08/01/18 01:08 18 08/01/18 00:08 18 07/31/18 23:10 98.8 F 94 H 20 145/88 98 07/31/18 22:00 80 152/87 07/31/18 19:59 18 07/31/18 18:59 20 Intake and Output 08/01/18 08/01/18 08/01/18 07:59 15:59 23:59 Intake Total 360 360 Balance 360 360 Intake: Oral 360 Intake, Free Water 360 Other: Total, Intake Amount 240 # Voids Void 1 1 - Exam Cardiovascular: Present: Normal S1, Normal S2 Lungs: Present: Clear to auscultation Vulva: both: normal Deep Tendon Reflex Grade: Normal but brisk +3 - Labs Labs: Abnormal lab results 07/31/18 08/01/18 08/01/18 Range/Units 17:49 13:41 13:41 RBC 3.26 L (3.65-5.03) M/mm3 Hgb 8.4 L (10.1-14.3) gm/dl Hct 26.0 L (30.3-42.9) % MCH 26 L (28-32) pg RDW 17.2 H (13.2-15.2) % POC Glucose 69 L (70-105) AST 50 H (5-40) units/L Lactate Dehydrogenase 309 H (91-180) units/L
[2018-08-01] MEDS ORDERED: LACTATED RINGERS 1,000 ML ONE (16:50)
[2018-08-01] MEDS ORDERED: MAGNESIUM SULFATE 40GM/1000ML 40 GM/1,000 ML BAG IV SCH (17:00)
[2018-08-02] MEDS: PERCOCET 5/325 PO PRN ×2 (03:16→18:57)
[2018-08-02] MEDS: NORMODYNE PO SCH ×2 (09:14→22:03)
[2018-08-02] MEDS: FEOSOL PO SCH ×2 (09:15→22:30)
[2018-08-02] MEDS: PRENATAL VITAMIN PO SCH (09:15)
[2018-08-02] MEDS: NORCO 5/325 PO PRN (10:24)
[2018-08-02] MEDS: MYLICON PO PRN (10:25)
--- NOTE | 2018-08-02 13:15 | Progress Note ---
Assessment and Plan - Patient Problems (1) 38 weeks gestation of Onset Date: 07/29/18 Current Visit: Yes Status: Resolved (2) GDM (gestational diabetes mellitus) Onset Date: 07/29/18 Current Visit: Yes Status: Chronic Qualifiers: Gestational diabetes mellitus control: oral hypoglycemic-controlled Tri mester: third trimester Qualified Code(s): O24.415 - Gestational diabetes mellitus in , controlled by oral hypoglycemic drugs (3) Previous section Onset Date: 07/29/18 Current Visit: Yes Status: Resolved (4) Pre-eclampsia affecting puerperium Onset Date: 07/29/18 Current Visit: Yes Status: Resolved (5) S/P repeat low transverse Onset Date: 08/02/18 Current Visit: Yes Status: Resolved Plan to address problem: A: S/P Repeat C Section - POD #4 Chronic hypertension with superimposed preeclampsia - still elevated BP's s/p Magnesium sulfate GDM - stable P: Will add Lasix and increase Labetolol to 300mg BID Continue BP management Subjective - Subjective Date of service: 08/02/18 Principal diagnosis: POD #4, s/p Repeat LTCS, Pre-eclampsia; GDM Interval history: Pt is feeling well without complaints except for swelling in hands and feet. She is s/p IV Magnesium sulfate and tolerating a reg diet without nausea or vomiting, ambulating and voiding without difficulty. She denies headaches or blurred vision. Patient reports: appetite normal, voiding normally, pain well controlled, flatus, ambulating normally, no dizzy ambulation, no nauseated : doing well, bottle feeding Objective - Vital Signs Latest vital signs: Vital Signs Temp Pulse Resp BP BP 08/02/18 10:24 18 08/02/18 09:14 76 169/100 08/02/18 05:50 75 18 146/85 08/02/18 03:50 98.1 F 82 18 159/108 08/02/18 01:48 98.4 F 79 18 140/94 08/02/18 00:53 98.4 F 84 20 166/103 08/01/18 22:49 97.8 F 101 H 18 161/105 08/01/18 21:08 97.7 F 18 08/01/18 19:02 80 152/91 08/01/18 18:47 83 154/95 08/01/18 18:32 83 152/93 03/18/19 18:17 90 150/91 08/01/18 18:02 81 158/89 08/01/18 17:47 76 165/91 08/01/18 17:35 69 181/88 08/01/18 15:25 87 20 154/89 08/01/18 13:35 98.2 F 87 20 158/94 Intake and Output 08/01/18 08/02/18 08/02/18 22:59 06:59 14:59 Intake Total 120 Output Total 1200 500 Balance 120 -1200 -500 Intake: Oral 120 Output: Urine 1200 500 Void 1200 500 Other: Total, Intake Amount 120 Total, Output Amount 500 500 - Exam Breasts: Present: deferred Cardiovascular: Present: Regular rate Abdomen: Present: normal appearance, soft Uterus: Present: normal, firm, fundal height below umbilicus Extremities: Present: normal Incision: Present: normal, dry, intact - Labs Labs: Abnormal lab results 08/01/18 08/01/18 08/02/18 Range/Units 13:41 13:41 01:00 RBC 3.26 L (3.65-5.03) M/mm3 Hgb 8.4 L (10.1-14.3) gm/dl Hct 26.0 L (30.3-42.9) % MCH 26 L (28-32) pg RDW 17.2 H (13.2-15.2) % POC Glucose (70-105) Magnesium 2.60 H (1.7-2.3) mg/dL AST 50 H (5-40) units/L Lactate Dehydrogenase 309 H (91-180) units/L 08/02/18 Range/Units 08:13 RBC (3.65-5.03) M/mm3 Hgb (10.1-14.3) gm/dl Hct (30.3-42.9) % MCH (28-32) pg RDW (13.2-15.2) % POC Glucose 64 L (70-105) Magnesium (1.7-2.3) mg/dL AST (5-40) units/L Lactate Dehydrogenase (91-180) units/L
[2018-08-02] MEDS ORDERED: NORMODYNE PO SCH (13:17)
[2018-08-02 14:39] LABS: Alanine Aminotransferase 36 units/L (7-56)
[2018-08-02] MEDS: LASIX PO SCH (14:53)
[2018-08-02] MEDS: APRESOLINE IV PRN (16:01)
[2018-08-03] MEDS: PERCOCET 5/325 PO PRN ×2 (00:39→19:28)
[2018-08-03] MEDS: HumuLIN R SUB-Q SCH ×2 (03:35→22:07)
[2018-08-03] MEDS: LASIX PO SCH (05:38)
[2018-08-03] MEDS: TYLENOL PO PRN (09:18)
[2018-08-03] MEDS ORDERED: NORMODYNE ONE (09:58)
--- NOTE | 2018-08-03 10:01 | Progress Note ---
Assessment and Plan - Patient Problems (1) 38 weeks gestation of Onset Date: 07/29/18 Current Visit: Yes Status: Resolved (2) GDM (gestational diabetes mellitus) Onset Date: 07/29/18 Current Visit: Yes Status: Chronic Qualifiers: Gestational diabetes mellitus control: oral hypoglycemic-controlled Tri mester: third trimester Qualified Code(s): O24.415 - Gestational diabetes mellitus in , controlled by oral hypoglycemic drugs (3) Previous section Onset Date: 07/29/18 Current Visit: Yes Status: Resolved (4) Pre-eclampsia affecting puerperium Onset Date: 07/29/18 Current Visit: Yes Status: Resolved (5) S/P repeat low transverse Onset Date: 08/02/18 Current Visit: Yes Status: Resolved Plan to address problem: A: S/P Repeat C Section - POD #5 Chronic hypertension with superimposed preeclampsia - still elevated BP's s/p Magnesium sulfate GDM - stable P: Will add Procardia 30mg XL Continue BP management Subjective - Subjective Date of service: 08/03/18 Principal diagnosis: POD #5, s/p Repeat LTCS, Pre-eclampsia; GDM Interval history: Pt is feeling well without complaints. Swelling in hands and feet improved. She is s/p IV Magnesium sulfate and tolerating a reg diet without nausea or vomiting, ambulating and voiding without difficulty. She denies headaches or blurred vision, but BP's still elevated. Patient reports: appetite normal, voiding normally, pain well controlled, flatus, ambulating normally, no dizzy ambulation, no nauseated : doing well, bottle feeding Objective - Vital Signs Latest vital signs: Vital Signs Temp Pulse Resp BP BP 08/03/18 09:18 18 08/03/18 04:00 98 F 66 18 121/78 08/03/18 02:30 98.7 F 66 18 138/86 08/03/18 00:39 20 08/02/18 22:03 78 146/80 08/02/18 21:35 98.4 F 70 140/82 08/02/18 20:44 97.9 F 69 18 163/88 08/02/18 19:28 158/88 08/02/18 18:45 163/93 08/02/18 18:15 138/84 08/02/18 16:01 65 198/108 08/02/18 15:45 198/108 08/02/18 12:00 97.4 F L 72 18 135/88 08/02/18 10:24 18 08/02/18 10:00 156/96 Intake and Output 08/02/18 08/03/18 08/03/18 22:59 06:59 14:59 Intake Total 240 200 Output Total 3100 Balance -2860 200 Intake: Oral 240 200 Output: Urine 3100 Void 3100 Other: Total, Intake Amount 240 200 Total, Output Amount 400 - Exam Breasts: Present: deferred Cardiovascular: Present: Regular rate Abdomen: Present: normal appearance, soft Uterus: Present: normal, firm, fundal height below umbilicus Extremities: Present: normal Incision: Present: normal, dry, intact - Labs Labs: Abnormal lab results 08/02/18 08/03/18 Range/Units 08:13 09:26 POC Glucose 64 L 64 L (70-105)
[2018-08-03] MEDS: NORMODYNE PO SCH ×2 (10:59→21:40)
[2018-08-03] MEDS: PRENATAL VITAMIN PO SCH (11:00)
[2018-08-03] MEDS: FEOSOL PO SCH ×2 (11:00→21:41)
[2018-08-03] MEDS: PROCARDIA XL PO SCH (12:11)
[2018-08-03] MEDS: APRESOLINE IV PRN (17:51)
[2018-08-04] MEDS: PERCOCET 5/325 PO PRN ×4 (00:28→20:03)
[2018-08-04] MEDS: TYLENOL PO PRN (03:20)
[2018-08-04] MEDS: LASIX PO SCH (06:04)
[2018-08-04] MEDS: IBUPROFEN PO PRN ×3 (07:53→20:03)
[2018-08-04] MEDS: NORMODYNE PO SCH ×2 (10:00→22:13)
[2018-08-04] MEDS: FEOSOL PO SCH ×2 (10:00→22:14)
[2018-08-04] MEDS: PRENATAL VITAMIN PO SCH (10:00)
[2018-08-04] MEDS: PROCARDIA XL PO SCH (10:05)
[2018-08-04] MEDS: APRESOLINE IV PRN (12:32)
--- NOTE | 2018-08-04 13:54 | Progress Note ---
Assessment and Plan - Patient Problems (1) 38 weeks gestation of Onset Date: 07/29/18 Current Visit: Yes Status: Resolved (2) GDM (gestational diabetes mellitus) Onset Date: 07/29/18 Current Visit: Yes Status: Chronic Qualifiers: Gestational diabetes mellitus control: oral hypoglycemic-controlled Tri mester: third trimester Qualified Code(s): O24.415 - Gestational diabetes mellitus in , controlled by oral hypoglycemic drugs (3) Previous section Onset Date: 07/29/18 Current Visit: Yes Status: Resolved (4) Pre-eclampsia affecting puerperium Onset Date: 07/29/18 Current Visit: Yes Status: Resolved (5) S/P repeat low transverse Onset Date: 08/02/18 Current Visit: Yes Status: Resolved Plan to address problem: A: S/P Repeat C Section - POD #6 Chronic hypertension with superimposed preeclampsia - still elevated BP's s/p Magnesium sulfate and currently on Labetolol 300mg BID, Procardia XL 30mg QD and Lasix 20mg QD GDM - stable P: Will obtain a consultation with Hospitalist (Dr Cowan) re: BP management Subjective - Subjective Date of service: 08/04/18 Principal diagnosis: POD #6, s/p Repeat LTCS, Pre-eclampsia; GDM Interval history: Pt is feeling well without complaints. Swelling in hands and feet improved. She is s/p IV Magnesium sulfate and tolerating a reg diet without nausea or vomiting, ambulating and voiding without difficulty. She had a headache earlier, now resolved, but denies blurred vision and BP's still elevated despite Labetolol 300mg BID, Procardia XL 30mg QD and Lasix 20mg QD. Patient reports: appetite normal, voiding normally, pain well controlled, flatus, ambulating normally, no nauseated Centre: doing well, bottle feeding Objective - Vital Signs Latest vital signs: Vital Signs Temp Pulse Resp BP BP Pulse Ox 08/04/18 12:32 74 182/112 08/04/18 12:23 98.7 F 70 18 171/102 100 08/04/18 08:21 98.4 F 82 18 160/98 97 08/04/18 04:05 98.5 F 86 18 153/94 08/04/18 00:28 20 08/03/18 23:30 98.2 F 85 18 139/86 08/03/18 21:40 86 155/88 08/03/18 19:28 18 08/03/18 18:33 101 H 147/95 08/03/18 18:19 98 H 151/97 08/03/18 18:05 93 H 147/97 08/03/18 17:58 87 158/102 08/03/18 17:53 75 170/101 08/03/18 17:51 75 170/101 08/03/18 16:35 99.2 F 79 18 163/95 98 Intake and Output 08/03/18 08/04/18 08/04/18 22:59 06:59 14:59 Intake Total 9178 578 1088 Output Total 900 Balance 133 467 0081 Intake: Oral 480 120 Intake, Free Water 9393 004 7896 Output: Urine 900 Void 900 Other: Total, Intake Amount 240 120 Total, Output Amount 900 # Voids Void 2 1 2 - Exam Breasts: Present: deferred Abdomen: Present: normal appearance, soft Uterus: Present: normal, firm, fundal height below umbilicus Incision: Present: normal, dry, intact - Labs Labs: Abnormal lab results 08/04/18 Range/Units 12:55 POC Glucose 67 L (70-105)
--- NOTE | 2018-08-04 14:26 | Consultation ---
History of Present Illness - Reason for Consult Consult date: 08/04/18 Requesting physician: ADRIÁN DOVE - History of Present Illness 33 YO Female with Gestational DM admitted for Preeclampsia S/P C Section. Consult placed by Dr. Dove for Hypertension. Pt seen and evaluated in her room. Pt denies fever, chills, CP, Palpitations, NVD, Trauma, Syncope, P roductive cough, skin rash or recent ill contacts. No reported nursing events. Pt denies any complaints. Past History Past Medical History: other (Gestational DM, ) Past Surgical History: Social history: no significant social history, single Family history: no significant family history (reviewed) Medications and Allergies Allergies Allergy/AdvReac Type Severity Reaction Status Date / Time doxycycline Allergy Unknown Verified 07/23/14 10:20 sulfamethoxazole Allergy Itching Verified 07/23/14 10:20 [From Bactrim] trimethoprim [From Bactrim] Allergy Itching Verified 07/23/14 10:20 Home Medications Medication Instructions Recorded Confirmed Last Taken Type Acetaminophen/Codeine 1 tab PO Q6H PRN #10 tab 07/23/14 07/30/18 Unknown Rx [Acetaminophen-Codeine #3 TAB] Phenazopyridine [Pyridium] 200 mg PO PC #5 tablet 07/23/14 07/30/18 Unknown Rx Acetaminophen [Acetaminophen TAB] 1,000 mg PO Q6HR PRN #60 tablet 01/28/17 07/30/18 Unknown Rx Doxylamine Succinate/Vit B6 1 each PO Q8H PRN #30 tablet. 12/20/17 07/30/18 Unknown Rx [Elie Dior 10-10 mg Tablet] Metoclopramide [Reglan] 10 mg PO TID PRN #60 tab 12/20/17 07/30/18 Unknown Rx Ondansetron [Zofran Odt] 4 mg PO Q8HR PRN #20 tab.rapdis 12/20/17 07/30/18 Unknown Rx Ferrous Sulfate [Feosol 325 MG tab] 325 mg PO BID #60 tablet 07/29/18 Unknown Rx HYDROcodone/APAP 5-325 [[place] 1 each PO Q6HR PRN #30 tablet 07/29/18 Unknown Rx 5/325] Ibuprofen [Motrin] 800 mg PO Q8HR PRN #30 tablet 07/29/18 Unknown Rx Pnv No.95/Ferrous Fum/Folic AC 1 each PO DAILY #30 tablet 07/29/18 Unknown Rx [ Vitamin Tablet] Active Meds: Active Medications Acetaminophen (Tylenol) 650 mg PO Q4H PRN PRN Reason: Fever >100.5/ALVA Last Admin: 08/04/18 03:20 Dose: 650 mg Documented by: Acetaminophen/Hydrocodone Bitart ([place] 5/325) 1 each PO Q4H PRN PRN Reason: Pain, Moderate (4-6) Last Admin: 08/02/18 10:24 Dose: 1 each Documented by: Dextrose (D50w (25gm) Syringe) 50 ml IV PRN PRN PRN Reason: Hypoglycemia Diphenhydramine HCl (Benadryl) 12.5 mg IV Q2H PRN PRN Reason: Itching Ferrous Sulfate (Feosol) 325 mg PO BID [facility] Last Admin: 08/04/18 10:00 Dose: 325 mg Documented by: Furosemide (Lasix) 20 mg PO DAILY@0600 [facility] Last Admin: 08/04/18 06:04 Dose: 20 mg Documented by: Hydralazine HCl (Apresoline) 10 mg IV Q30MIN PRN PRN Reason: Blood Pressure Last Admin: 08/04/18 12:32 Dose: 10 mg Documented by: Hydromorphone HCl (Dilaudid) 0.5 mg IV Q4H PRN PRN Reason: breakthrough pain > 7/10 Last Admin: 07/30/18 05:54 Dose: 0.5 mg Documented by: Dextrose/Lactated Ringer's (D5lr) 1,000 mls @ 125 mls/hr IV DIRECT EMILIANO Oxytocin/Sodium Chloride (Pitocin/Ns 20 Unit/1000ml Drip) 20 units in 1,000 mls @ 250 mls/hr IV DIRECT EMILIANO Last Admin: 07/30/18 00:47 Dose: 250 mls/hr Documented by: Magnesium Sulfate (Magnesium Sulfate 40gm/1000ml) 40 gm in 1,000 mls @ 50 mls/hr IV DIRECT EMILIANO Last Admin: 08/01/18 18:20 Dose: 2 gm/hr, 50 mls/hr Documented by: Ibuprofen (Motrin) 800 mg PO Q6H PRN PRN Reason: Pain, Mild (1-3) Last Admin: 08/04/18 14:01 Dose: 800 mg Documented by: Insulin Human Regular (Humulin R) 0 units SUB-Q ACHS [facility]; Protocol Last Admin: 08/03/18 22:07 Dose: Not Given Documented by: Labetalol HCl (Normodyne) 300 mg PO BID [facility] Last Admin: 08/04/18 10:00 Dose: 300 mg Documented by: Magnesium Hydroxide (Milk Of Magnesia) 30 ml PO QDAY PRN PRN Reason: Constipation Last Admin: 07/30/18 15:51 Dose: 30 ml Documented by: Multi-Ingredient Ointment (Lansinoh) 1 applic TP PRN PRN PRN Reason: dryness/cracking Multivitamins/Iron/Calcium ( Vitamin) 1 each PO QDAY [facility] Last Admin: 08/04/18 10:00 Dose: 1 each Documented by: Naloxone HCl (Narcan 0.4 Mg/1 Ml) 0.1 mg IV Q2MIN PRN PRN Reason: Res Rate </= 8 or 02 SAT < 92% Nifedipine (Procardia Xl) 30 mg PO QDAY [facility] Last Admin: 08/04/18 10:05 Dose: 30 mg Documented by: Ondansetron HCl (Zofran) 4 mg IV Q8H PRN PRN Reason: Nausea And Vomiting Oxycodone/Acetaminophen (Percocet 5/325) 2 tab PO Q6H PRN PRN Reason: Pain, Moderate (4-6) Last Admin: 08/04/18 13:59 Dose: 2 tab Documented by: Promethazine HCl (Phenergan) 25 mg PO Q6H PRN PRN Reason: Nausea And Vomiting Promethazine HCl (Phenergan) 25 mg PA Q6H PRN PRN Reason: Nausea And Vomiting Simethicone (Mylicon) 80 mg PO Q6H PRN PRN Reason: Gas pain Last Admin: 08/02/18 10:25 Dose: 80 mg Documented by: Sodium Chloride (Sodium Chloride Flush Syringe 10 Ml) 10 ml IV PRN PRN PRN Reason: LINE FLUSH Witch Silvia/Glycerin (Tucks Pad) 1 each TP PRN PRN PRN Reason: Hemorrhoids/cleansing/soothing Review of Systems Constitutional: no weight loss, no weight gain, no fever, no chills Ears, nose, mouth and throat: no ear pain, no ear discharge, no tinnitis, no decreased hearing, no nose pain Cardiovascular: no chest pain, no orthopnea, no palpitations, no rapid/irregular heart beat, no edema Respiratory: no cough, no cough with sputum, no excessive sputum, no hemoptysis, no shortness of breath Gastrointestinal: no abdominal pain, no nausea, no vomiting, no diarrhea Genitourinary Female: no pelvic pain, no flank pain, no menorrhagia, no dysuria, no urinary frequency, no urgency Rectal: no pain, no incontinence, no bleeding Musculoskeletal: no neck stiffness, no neck pain, no shooting arm pain, no arm numbness/tingling, no low back pain, no shooting leg pain Integumentary: no rash, no pruritis, no redness, no sores, no wounds Neurological: no paralysis, no weakness, no parathesias, no numbness, no tingling, no seizures Psychiatric: no anxiety, no memory loss, no change in sleep habits, no sleep disturbances, no insomnia, no hypersomnia, no change in appetite Endocrine: no cold intolerance, no heat intolerance, no polyphagia, no excessive thirst, no polydipsia, no polyuria, no nocturia Hematologic/Lymphatic: no easy bruising, no easy bleeding Allergic/Immunologic: no urticaria, no allergic rhinitis, no wheezing Exam - Constitutional Vitals: Temp Pulse Resp BP Pulse Ox 98.7 F 74 20 182/112 100 08/04/18 12:23 08/04/18 12:32 08/04/18 14:01 08/04/18 12:32 08/04/18 12:23 General appearance: Present: no acute distress, obese - EENT Eyes: Present: PERRL ENT: hearing intact, clear oral mucosa - Neck Neck: Present: supple, normal ROM - Respiratory Respiratory effort: normal Respiratory: bilateral: CTA - Cardiovascular Heart Sounds: Present: S1 & S2. Absent: rub, click - Extremities Extremities: pulses symmetrical, No edema Peripheral Pulses: within normal limits - Abdominal General gastrointestinal: Present: soft, non-tender, non-distended, normal bowel sounds Female genitourinary: Present: normal - Integumentary Integumentary: Present: clear, warm, dry - Musculoskeletal Musculoskeletal: gait normal, strength equal bilaterally - Psychiatric Psychiatric: appropriate mood/affect, intact judgment & insight - Neurologic Neurologic: CNII-XII intact, moves all extremities Results - Labs CBC & Chem 7: 08/01/18 13:41 07/29/18 15:34 Labs: Abnormal lab results 08/04/18 Range/Units 12:55 POC Glucose 67 L (70-105) Assessment and Plan - Patient Problems (1) hypertension Current Visit: Yes Status: Acute Plan to address problem: Monitor BP q shift, Take blood pressure with Dynamap, as well as manual B/P x 3. I suspect some of the patient Blood pressure variation is due to technique, as well as patient anxiety, continue B Patricia, and add scheduled oral hydralazine. Pt BP expected to increase during first week S/P delivery.
[2018-08-04] MEDS: HumuLIN R SUB-Q SCH ×2 (17:26→22:21)
[2018-08-04] MEDS: APRESOLINE PO SCH (22:14)
[2018-08-05] MEDS: PERCOCET 5/325 PO PRN ×3 (03:32→20:11)
[2018-08-05] MEDS: IBUPROFEN PO PRN ×2 (03:34→14:03)
[2018-08-05] MEDS: APRESOLINE PO SCH ×3 (06:00→22:04)
[2018-08-05] MEDS: LASIX PO SCH (06:01)
[2018-08-05] MEDS: HumuLIN R SUB-Q SCH ×4 (08:32→22:27)
[2018-08-05] MEDS: FEOSOL PO SCH ×3 (08:56→22:01)
[2018-08-05] MEDS: NORMODYNE PO SCH ×3 (08:57→22:04)
[2018-08-05] MEDS: PROCARDIA XL PO SCH (08:58)
[2018-08-05] MEDS: PRENATAL VITAMIN PO SCH ×2 (08:59→10:00)
--- NOTE | 2018-08-05 10:01 | Progress Note ---
Assessment and Plan - Patient Problems (1) 38 weeks gestation of Onset Date: 07/29/18 Current Visit: Yes Status: Resolved (2) GDM (gestational diabetes mellitus) Onset Date: 07/29/18 Current Visit: Yes Status: Resolved Qualifiers: Gestational diabetes mellitus control: oral hypoglycemic-controlled Tr imester: third trimester Qualified Code(s): O24.415 - Gestational diabetes mellitus in , controlled by oral hypoglycemic drugs (3) Previous section Onset Date: 07/29/18 Current Visit: Yes Status: Resolved (4) Pre-eclampsia affecting puerperium Onset Date: 07/29/18 Current Visit: Yes Status: Resolved (5) S/P repeat low transverse Onset Date: 08/02/18 Current Visit: Yes Status: Resolved Plan to address problem: A: S/P Repeat C Section - POD #7 Chronic hypertension with superimposed preeclampsia - still elevated BP's s/p Magnesium sulfate and currently on Labetolol 300mg BID, Procardia XL 30mg QD and Lasix 20mg QD GDM - stable P: Appreciate consultation with Hospitalist (Dr Cowan) re: BP management Subjective - Subjective Date of service: 08/05/18 Principal diagnosis: POD #7, s/p Repeat LTCS, Pre-eclampsia; GDM Interval history: Pt is feeling well without complaints. Swelling in hands and feet improved. She is s/p IV Magnesium sulfate and tolerating a reg diet without nausea or vomiting, ambulating and voiding without difficulty. She denies headaches or blurred vision. BP's still elevated despite Labetolol 300mg BID, Procardia XL 30mg QD and Lasix 20mg QD. Patient reports: appetite normal, voiding normally, pain well controlled, flatus , bowel movement, ambulating normally, no dizzy ambulation, no nauseated : doing well, nursing well, bottle feeding Objective - Vital Signs Latest vital signs: Vital Signs Temp Pulse Resp Resp BP BP Pulse Ox 08/05/18 09:00 18 08/05/18 08:57 82 154/100 08/05/18 08:44 18 08/05/18 08:31 82 08/05/18 08:28 100.4 F H 18 154/100 08/05/18 06:00 74 157/91 08/05/18 04:55 142/86 08/05/18 04:50 98.5 F 82 18 138/82 03/22/19 00:10 138/80 08/05/18 00:05 98.4 F 80 20 136/85 08/04/18 22:14 79 164/98 08/04/18 22:13 79 164/98 08/04/18 20:05 152/92 08/04/18 20:02 98.5 F 87 20 152/99 98 08/04/18 15:48 100 H 150/85 08/04/18 15:45 98.3 F 89 18 161/98 08/04/18 14:01 20 08/04/18 13:59 20 08/04/18 13:04 154/101 08/04/18 12:38 80 182/112 97 08/04/18 12:32 74 182/112 08/04/18 12:23 98.7 F 70 18 171/102 100 Intake and Output 08/04/18 08/05/18 08/05/18 22:59 06:59 14:59 Intake Total 840 240 Balance 840 240 Intake: Oral 360 Intake, Free Water 480 240 Other: Total, Intake Amount 360 # Voids Void 2 1 - Exam Breasts: Present: deferred Abdomen: Present: normal appearance, soft Uterus: Present: normal, firm, fundal height below umbilicus Extremities: Present: normal Incision: Present: normal, dry, intact - Labs Labs: Abnormal lab results 08/04/18 08/04/18 Range/Units 12:55 22:05 POC Glucose 67 L 66 L (70-105)
--- NOTE | 2018-08-05 10:51 | Progress Note ---
Assessment and Plan Assessment and plan: 33-year-old woman with gestational diabetes admitted for preeclampsia status post Anything consulted for management of hypertension and diabetes Diagnoses Hypertension Low-grade fever Gestational diabetes Hypoglycemia Plan Obtain fever workup which includes blood cultures, chest x-ray and UA/urine culture, if fever does not resolve, she will need pelvic ultrasound to rule out retention products of conception Optimize blood pressure medications, increase labetalol to every 8 hours Continue dextrose drip as patient was hypoglycemic last night and this morning DVT prophylaxis per primary team History Interval history: Review of systems Constitutional: had low grade fevers, no malaise, no joint pains CVS: No chest pain, no orthopnea, no dyspnea on exertion, no pedal edema GI: No abdominal pain, no diarrhea, no vomiting, no constipation Respiratory: No shortness of breath, no wheezing, no coughing Hospitalist Physical - Physical exam Narrative exam: General.: Appears well, no distress, nontoxic HEENT: Moist mucous membranes, extraocular muscles intact, no lymphadenopathy Neck: supple Cardiac: S1-S2 heard Lungs: clear to auscultation bilaterally Abdomen: soft , nontender, nondistended, bowel sounds positive Extremities: no edema clubbing or cyanosis Skin: no rash or lesions Neurologic: no gross focal deficits Psych: calm, and cooperative - Constitutional Vitals: Temp Pulse Resp BP Pulse Ox 100.4 F H 82 18 154/100 98 08/05/18 08:28 08/05/18 08:57 08/05/18 09:00 08/05/18 08:57 08/04/18 20:02 General appearance: Present: no acute distress, obese Results - Labs CBC & Chem 7: 08/05/18 10:56 08/05/18 10:56 Labs: Laboratory Last Values WBC 7.7 K/mm3 (4.5-11.0) 08/01/18 13:41 RBC 3.26 M/mm3 (3.65-5.03) L 08/01/18 13:41 Hgb 8.4 gm/dl (10.1-14.3) L 08/01/18 13:41 Hct 26.0 % (30.3-42.9) L 08/01/18 13:41 MCV 80 fl (79-97) 08/01/18 13:41 MCH 26 pg (28-32) L 08/01/18 13:41 MCHC 33 % (30-34) 08/01/18 13:41 RDW 17.2 % (13.2-15.2) H 08/01/18 13:41 Plt Count 341 K/mm3 (140-440) 08/01/18 13:41 Lymph % (Auto) 23.3 % (13.4-35.0) 07/29/18 15:35 [place] % (Auto) 8.5 % (0.0-7.3) H 07/29/18 15:35 Eos % (Auto) 0.8 % (0.0-4.3) 07/29/18 15:35 Baso % (Auto) 0.2 % (0.0-1.8) 07/29/18 15:35 Lymph # 1.8 K/mm3 (1.2-5.4) 07/29/18 15:35 [place] # 0.7 K/mm3 (0.0-0.8) 07/29/18 15:35 Eos # 0.1 K/mm3 (0.0-0.4) 07/29/18 15:35 Baso # 0.0 K/mm3 (0.0-0.1) 07/29/18 15:35 Seg Neutrophils % 67.2 % (40.0-70.0) 07/29/18 15:35 Seg Neutrophils # 5.1 K/mm3 (1.8-7.7) 07/29/18 15:35 Creatinine 0.5 mg/dL (0.7-1.2) L 07/29/18 15:34 Estimated GFR > 60 ml/min 07/29/18 15:34 POC Glucose 80 (70-105) 08/05/18 08:25 Uric Acid 4.1 mg/dL (3.5-7.6) 08/01/18 13:41 Magnesium 2.60 mg/dL (1.7-2.3) H 08/02/18 01:00 AST 40 units/L (5-40) 08/02/18 01:00 ALT 36 units/L (7-56) 08/02/18 01:00 Lactate Dehydrogenase 309 units/L (91-180) H 08/01/18 13:41 Urine Color Yellow (Yellow) 08/01/18 12:48 Urine Turbidity Hazy (Clear) 08/01/18 12:48 Urine pH 6.0 (5.0-7.0) 08/01/18 12:48 Ur Specific [place] 1.006 (1.003-1.030) 08/01/18 12:48 Urine Protein <15 mg/dl mg/dL (Negative) 08/01/18 12:48 Urine Glucose (UA) Neg mg/dL (Negative) 08/01/18 12:48 Urine Ketones 20 mg/dL (Negative) 08/01/18 12:48 Urine Blood Lg (Negative) 08/01/18 12:48 Urine Nitrite Neg (Negative) 08/01/18 12:48 Urine Bilirubin Neg (Negative) 08/01/18 12:48 Urine Urobilinogen < 2.0 mg/dL (<2.0) 08/01/18 12:48 Ur Leukocyte Esterase Neg (Negative) 08/01/18 12:48 Urine WBC (Auto) 3.0 /HPF (0.0-6.0) 08/01/18 12:48 Urine RBC (Auto) > 182.0 /HPF (0.0-6.0) 08/01/18 12:48 U Epithel Cells (Auto) 3.0 /HPF (0-13.0) 08/01/18 12:48 Urine Bacteria (Auto) 4+ /HPF (Negative) 07/29/18 13:45 Urine Mucus Few /HPF 08/01/18 12:48 Blood Type A POSITIVE 07/29/18 15:54 Antibody Screen Negative 07/29/18 15:54 Active Medications - Current Medications Current Medications: Generic Name Dose Route Start Last Admin Trade Name Freq PRN Reason Stop Dose Admin Acetaminophen 650 mg 07/30/18 00:08 08/04/18 03:20 Tylenol PO 650 mg Q4H PRN Administration Fever >100.5/ALVA Acetaminophen/Hydrocodone Bitart 1 each 07/30/18 00:08 08/02/18 10:24 [place] 5/325 PO 1 each Q4H PRN Administration Pain, Moderate (4-6) Dextrose 50 ml 07/30/18 00:08 D50w (25gm) Syringe IV PRN PRN Hypoglycemia Diphenhydramine HCl 12.5 mg 07/29/18 22:36 Benadryl IV Q2H PRN Itching Ferrous Sulfate 325 mg 07/31/18 23:45 08/05/18 08:56 Feosol PO 325 mg BID EMILIANO Administration Hydralazine HCl 10 mg 08/02/18 13:19 08/04/18 12:32 Apresoline IV 10 mg Q30MIN PRN Administration Blood Pressure Hydralazine HCl 25 mg 08/04/18 22:00 08/05/18 06:00 Apresoline PO 25 mg Q8HR EMILIANO Administration Hydromorphone HCl 0.5 mg 07/29/18 22:36 07/30/18 05:54 Dilaudid IV 0.5 mg Q4H PRN Administration breakthrough pain > 7/10 Dextrose/Lactated Ringer's 1,000 mls @ 125 mls/hr 07/30/18 01:00 D5lr IV DIRECT EMILIANO Oxytocin/Sodium Chloride 20 units in 1,000 mls @ 250 mls/hr 07/30/18 01:00 07/30/18 00:47 Pitocin/Ns 20 Unit/1000ml Drip IV 250 mls/hr DIRECT EMILIANO Administration Magnesium Sulfate 40 gm in 1,000 mls @ 50 mls/hr 08/01/18 17:00 08/01/18 18:20 Magnesium Sulfate 40gm/1000ml IV 2 gm/hr DIRECT EMILIANO 50 mls/hr Administration 2 GM/HR Ibuprofen 800 mg 07/30/18 00:08 08/05/18 03:34 Motrin PO 800 mg Q6H PRN Administration Pain, Mild (1-3) Insulin Human Regular 0 units 07/30/18 07:30 08/05/18 08:32 Humulin R SUB-Q Not Given ACHS [facility] Protocol Labetalol HCl 300 mg 08/05/18 14:00 Normodyne PO Q8HR EMILIANO Magnesium Hydroxide 30 ml 07/30/18 15:40 07/30/18 15:51 Milk Of Magnesia PO 30 ml QDAY PRN Administration Constipation Multi-Ingredient Ointment 1 applic 07/30/18 00:08 Lansinoh TP PRN PRN dryness/cracking Multivitamins/Iron/Calcium 1 each 07/30/18 10:00 08/05/18 08:58 Vitamin PO 1 each QDAY EMILIANO Administration Naloxone HCl 0.1 mg 07/30/18 00:08 Narcan 0.4 Mg/1 Ml IV Q2MIN PRN Res Rate </= 8 or 02 SAT < 92% Nifedipine 30 mg 08/03/18 13:00 08/05/18 08:58 Procardia Xl PO 30 mg QDAY EMILIANO Administration Ondansetron HCl 4 mg 07/29/18 22:36 Zofran IV Q8H PRN Nausea And Vomiting Oxycodone/Acetaminophen 2 tab 07/30/18 00:08 08/05/18 08:44 Percocet 5/325 PO 2 tab Q6H PRN Administration Pain, Moderate (4-6) Promethazine HCl 25 mg 07/29/18 22:36 Phenergan PO Q6H PRN Nausea And Vomiting Promethazine HCl 25 mg 07/29/18 22:36 Phenergan CA Q6H PRN Nausea And Vomiting Simethicone 80 mg 07/30/18 15:40 08/02/18 10:25 Mylicon PO 80 mg Q6H PRN Administration Gas pain Sodium Chloride 10 ml 07/30/18 01:00 Sodium Chloride Flush Syringe 10 Ml IV PRN PRN LINE FLUSH Witch Silvia/Glycerin 1 each 07/30/18 00:08 Tucks Pad TP PRN PRN Hemorrhoids/cleansing/soothing
[2018-08-05 11:16] LABS: Basophils % (Auto) 0.7 % (0.0-1.8); Eosinophils # (Auto) 0.2 K/mm3 (0.0-0.4); Eosinophils % (Auto) 3.2 % (0.0-4.3); Hematocrit 30.5 % (30.3-42.9); Hemoglobin 9.9 gm/dl (10.1-14.3); Lymphocytes # (Auto) 1.2 K/mm3 (1.2-5.4); Lymphocytes % (Auto) 23.2 % (13.4-35.0); Mean Corpuscular HGB Conc 32 % (30-34); Mean Corpuscular Volume 79 fl (79-97); Monocytes # (Auto) 0.5 K/mm3 (0.0-0.8); Platelet Count 450 K/mm3 (140-440); Red Blood Count 3.85 M/mm3 (3.65-5.03); Red Cell Distribution Width 18.1 % (13.2-15.2)
[2018-08-05 11:35] LABS: BUN/Creatinine Ratio 13; Blood Urea Nitrogen 8 mg/dL (7-17); Calcium 9.1 mg/dL (8.4-10.2); Hemolysis Index 0
[2018-08-05 11:49] LABS: Bilirubin,Urine NEG (Negative); Blood,Urine NEG (Negative); Color,Urine Yellow (Yellow); Protein,Urine <15 mg/dL mg/dL (Negative); Urobilinogen,Urine < 2.0 mg/dL (<2.0)
--- NOTE | 2018-08-05 13:15 | XRay Report ---
ROUTINE CHEST, TWO VIEWS: HISTORY: Fever. The trachea, heart, mediastinal contour, lung swann and bony thorax are unremarkable. IMPRESSION: Unremarkable chest x-ray.
[2018-08-06] MEDS: IBUPROFEN PO PRN ×2 (03:49→13:41)
[2018-08-06] MEDS: NORMODYNE PO SCH ×2 (05:28→13:40)
[2018-08-06] MEDS: APRESOLINE PO SCH ×2 (05:28→13:40)
[2018-08-06] MEDS: HumuLIN R SUB-Q SCH ×2 (08:00→11:30)
--- NOTE | 2018-08-06 09:04 | Progress Note ---
Assessment and Plan - Patient Problems (1) 38 weeks gestation of Onset Date: 07/29/18 Current Visit: Yes Status: Resolved (2) GDM (gestational diabetes mellitus) Onset Date: 07/29/18 Current Visit: Yes Status: Resolved Qualifiers: Gestational diabetes mellitus control: oral hypoglycemic-controlled Tr imester: third trimester Qualified Code(s): O24.415 - Gestational diabetes mellitus in , controlled by oral hypoglycemic drugs (3) Previous section Onset Date: 07/29/18 Current Visit: Yes Status: Resolved (4) Pre-eclampsia affecting puerperium Onset Date: 07/29/18 Current Visit: Yes Status: Resolved (5) S/P repeat low transverse Onset Date: 08/02/18 Current Visit: Yes Status: Resolved Plan to address problem: A: S/P Repeat C Section - POD #8 Chronic hypertension with superimposed preeclampsia - still elevated BP's s/p Magnesium sulfate and currently on Labetolol 300mg TID, Procardia XL 30mg QD and Hydralazine 25mg Q8 GDM - stable P: Appreciate consultation with Hospitalist (Dr Cowan) re: BP management Will discharge to home when cleared by Hospitalist Subjective - Subjective Date of service: 08/06/18 Principal diagnosis: POD #8, s/p Repeat LTCS, Pre-eclampsia; GDM Interval history: Pt is feeling well without complaints. She is s/p IV Magnesium sulfate and tolerating a reg diet without nausea or vomiting, ambulating and voiding without difficulty. She denies headaches or blurred vision. BP's still elevated despite Labetolol 300mg TID, Procardia XL 30mg QD and Hydralazine 25mg Q8. Patient reports: appetite normal, voiding normally, pain well controlled, flatus, ambulating normally, no dizzy ambulation, no nauseated [place]: doing well, nursing well, bottle feeding Objective - Vital Signs Latest vital signs: Vital Signs Temp Pulse Resp BP BP Pulse Ox 08/06/18 05:28 77 149/103 08/06/18 04:35 98.0 F 77 20 149/103 08/06/18 00:00 98.5 F 66 20 143/90 08/05/18 22:05 76 158/98 08/05/18 22:04 76 158/98 08/05/18 17:12 98.5 F 80 20 150/98 99 08/05/18 14:04 101 H 156/100 08/05/18 13:57 97.8 F 08/05/18 11:51 99 H 124/83 Intake and Output 08/05/18 08/06/18 08/06/18 22:59 06:59 14:59 Intake Total 480 120 Balance 480 120 Intake: Oral 480 120 Other: Total, Intake Amount 480 120 # Voids Void 2 1 - Exam Abdomen: Present: normal appearance, soft Uterus: Present: normal, firm, fundal height below umbilicus Extremities: Present: normal Incision: Present: normal, dry, intact - Labs Labs: Abnormal lab results 08/05/18 08/05/18 08/05/18 Range/Units 10:56 10:56 10:56 Hgb 9.9 L (10.1-14.3) gm/dl MCH 26 L (28-32) pg RDW 18.1 H (13.2-15.2) % Plt Count 450 H (140-440) K/mm3 [place] % (Auto) 10.0 H (0.0-7.3) % Sodium 136 L (137-145) mmol/L Carbon Dioxide 20 L (22-30) mmol/L Creatinine 0.6 L (0.7-1.2) mg/dL POC Glucose (70-105) Hemoglobin A1c 6.3 H (4-6) % 08/05/18 08/06/18 Range/Units 17:23 09:00 Hgb (10.1-14.3) gm/dl MCH (28-32) pg RDW (13.2-15.2) % Plt Count (140-440) K/mm3 [place] % (Auto) (0.0-7.3) % Sodium (137-145) mmol/L Carbon Dioxide (22-30) mmol/L Creatinine (0.7-1.2) mg/dL POC Glucose 63 L 106 H (70-105) Hemoglobin A1c (4-6) % Microbiology 08/05/18 Unknown Urine,Clean Catch Urine Culture - Preliminary NO GROWTH AFTER 24 HOURS 08/05/18 13:12 Peripheral/Venous Blood Culture - Preliminary Culture in Progress 08/05/18 10:56 Peripheral/Venous Blood Culture - Preliminary Culture in Progress
--- NOTE | 2018-08-06 09:13 | Progress Note ---
Assessment and Plan Assessment and plan: 33-year-old woman with gestational diabetes admitted for preeclampsia status post Anything consulted for management of hypertension and diabetes Diagnoses Hypertension Low-grade fever Gestational diabetes Hypoglycemia Plan Patient had one episode of low-grade fever, now resolved. Fever workup was negative, no further workup indicated Optimized blood pressure medications, increase labetalol to every 8 hours The patient was treated with dextrose drip for hyperglycemia, now resolved hypoglycemia was most likely due to not eating, A1c very well controlled Patient is medically optimized for discharge home from a hospitalist standpoint. Discharge per primary team DVT prophylaxis per primary team History Interval history: Review of systems Constitutional: no fevers, no malaise, no joint pains CVS: No chest pain, no orthopnea, no dyspnea on exertion, no pedal edema GI: No abdominal pain, no diarrhea, no vomiting, no constipation Respiratory: No shortness of breath, no wheezing, no coughing Hospitalist Physical - Physical exam Narrative exam: General.: Appears well, no distress, nontoxic HEENT: Moist mucous membranes, extraocular muscles intact, no lymphadenopathy Neck: supple Cardiac: S1-S2 heard Lungs: clear to auscultation bilaterally Abdomen: soft , nontender, nondistended, bowel sounds positive Extremities: no edema clubbing or cyanosis Skin: no rash or lesions Neurologic: no gross focal deficits Psych: calm, and cooperative - Constitutional Vitals: Temp Pulse Resp BP Pulse Ox 99.2 F 87 18 125/79 96 08/06/18 07:42 08/06/18 07:42 08/06/18 07:42 08/06/18 07:42 08/06/18 07:42 General appearance: Present: no acute distress, obese Results - Labs CBC & Chem 7: 08/05/18 10:56 08/05/18 10:56 Labs: Laboratory Last Values WBC 5.1 K/mm3 (4.5-11.0) 08/05/18 10:56 RBC 3.85 M/mm3 (3.65-5.03) 08/05/18 10:56 Hgb 9.9 gm/dl (10.1-14.3) L 08/05/18 10:56 Hct 30.5 % (30.3-42.9) 08/05/18 10:56 MCV 79 fl (79-97) 08/05/18 10:56 MCH 26 pg (28-32) L 08/05/18 10:56 MCHC 32 % (30-34) 08/05/18 10:56 RDW 18.1 % (13.2-15.2) H 08/05/18 10:56 Plt Count 450 K/mm3 (140-440) H 08/05/18 10:56 Lymph % (Auto) 23.2 % (13.4-35.0) 08/05/18 10:56 [place] % (Auto) 10.0 % (0.0-7.3) H 08/05/18 10:56 Eos % (Auto) 3.2 % (0.0-4.3) 08/05/18 10:56 Baso % (Auto) 0.7 % (0.0-1.8) 08/05/18 10:56 Lymph # 1.2 K/mm3 (1.2-5.4) 08/05/18 10:56 [place] # 0.5 K/mm3 (0.0-0.8) 08/05/18 10:56 Eos # 0.2 K/mm3 (0.0-0.4) 08/05/18 10:56 Baso # 0.0 K/mm3 (0.0-0.1) 08/05/18 10:56 Seg Neutrophils % 62.9 % (40.0-70.0) 08/05/18 10:56 Seg Neutrophils # 3.2 K/mm3 (1.8-7.7) 08/05/18 10:56 Sodium 136 mmol/L (137-145) L 08/05/18 10:56 Potassium 4.0 mmol/L (3.6-5.0) 08/05/18 10:56 Chloride 101.9 mmol/L (98-107) 08/05/18 10:56 Carbon Dioxide 20 mmol/L (22-30) L 08/05/18 10:56 Anion Gap 18 mmol/L 08/05/18 10:56 BUN 8 mg/dL (7-17) 08/05/18 10:56 Creatinine 0.6 mg/dL (0.7-1.2) L 08/05/18 10:56 Estimated GFR > 60 ml/min 08/05/18 10:56 BUN/Creatinine Ratio 13 % 08/05/18 10:56 Glucose 97 mg/dL (65-100) 08/05/18 10:56 POC Glucose 106 (70-105) H 08/06/18 09:00 Hemoglobin A1c 6.3 % (4-6) H 08/05/18 10:56 Uric Acid 4.1 mg/dL (3.5-7.6) 08/01/18 13:41 Calcium 9.1 mg/dL (8.4-10.2) 08/05/18 10:56 Magnesium 2.60 mg/dL (1.7-2.3) H 08/02/18 01:00 AST 40 units/L (5-40) 08/02/18 01:00 ALT 36 units/L (7-56) 08/02/18 01:00 Lactate Dehydrogenase 309 units/L (91-180) H 08/01/18 13:41 Urine Color Yellow (Yellow) 08/05/18 11:39 Urine Turbidity Clear (Clear) 08/05/18 11:39 Urine pH 6.0 (5.0-7.0) 08/05/18 11:39 Ur Specific [place] 1.014 (1.003-1.030) 08/05/18 11:39 Urine Protein <15 mg/dl mg/dL (Negative) 08/05/18 11:39 Urine Glucose (UA) Neg mg/dL (Negative) 08/05/18 11:39 Urine Ketones Neg mg/dL (Negative) 08/05/18 11:39 Urine Blood Neg (Negative) 08/05/18 11:39 Urine Nitrite Neg (Negative) 08/05/18 11:39 Urine Bilirubin Neg (Negative) 08/05/18 11:39 Urine Urobilinogen < 2.0 mg/dL (<2.0) 08/05/18 11:39 Ur Leukocyte Esterase Neg (Negative) 08/05/18 11:39 Urine WBC (Auto) 3.0 /HPF (0.0-6.0) 08/05/18 11:39 Urine RBC (Auto) 1.0 /HPF (0.0-6.0) 08/05/18 11:39 U Epithel Cells (Auto) 1.0 /HPF (0-13.0) 08/05/18 11:39 Urine Bacteria (Auto) 4+ /HPF (Negative) 07/29/18 13:45 Urine Mucus Few /HPF 08/01/18 12:48 Blood Type A POSITIVE 07/29/18 15:54 Antibody Screen Negative 07/29/18 15:54 Active Medications - Current Medications Current Medications: Generic Name Dose Route Start Last Admin Trade Name Treyq PRN Reason Stop Dose Admin Acetaminophen 650 mg 07/30/18 00:08 08/04/18 03:20 Tylenol PO 650 mg Q4H PRN Administration Fever >100.5/ALVA Acetaminophen/Hydrocodone Bitart 1 each 07/30/18 00:08 08/02/18 10:24 [place] 5/325 PO 1 each Q4H PRN Administration Pain, Moderate (4-6) Dextrose 50 ml 07/30/18 00:08 D50w (25gm) Syringe IV PRN PRN Hypoglycemia Diphenhydramine HCl 12.5 mg 07/29/18 22:36 Benadryl IV Q2H PRN Itching Ferrous Sulfate 325 mg 07/31/18 23:45 08/05/18 22:01 Feosol PO 325 mg BID EMILIANO Administration Hydralazine HCl 10 mg 08/02/18 13:19 08/04/18 12:32 Apresoline IV 10 mg Q30MIN PRN Administration Blood Pressure Hydralazine HCl 25 mg 08/04/18 22:00 08/06/18 05:28 Apresoline PO 25 mg Q8HR EMILIANO Administration Hydromorphone HCl 0.5 mg 07/29/18 22:36 07/30/18 05:54 Dilaudid IV 0.5 mg Q4H PRN Administration breakthrough pain > 7/10 Dextrose/Lactated Ringer's 1,000 mls @ 125 mls/hr 07/30/18 01:00 D5lr IV DIRECT EMILIANO Oxytocin/Sodium Chloride 20 units in 1,000 mls @ 250 mls/hr 07/30/18 01:00 07/30/18 00:47 Pitocin/Ns 20 Unit/1000ml Drip IV 250 mls/hr DIRECT EMILIANO Administration Magnesium Sulfate 40 gm in 1,000 mls @ 50 mls/hr 08/01/18 17:00 08/01/18 1 8:20 Magnesium Sulfate 40gm/1000ml IV 2 gm/hr DIRECT EMILIANO 50 mls/hr Administration 2 GM/HR Ibuprofen 800 mg 07/30/18 00:08 08/06/18 03:49 Motrin PO 800 mg Q6H PRN Administration Pain, Mild (1-3) Insulin Human Regular 0 units 07/30/18 07:30 08/05/18 22:27 Humulin R SUB-Q Not Given [facility] Protocol Labetalol HCl 300 mg 08/05/18 14:00 08/06/18 05:28 Normodyne PO 300 mg Q8HR [facility] Administration Magnesium Hydroxide 30 ml 07/30/18 15:40 07/30/18 15:51 Milk Of Magnesia PO 30 ml QDAY PRN Administration Constipation Multi-Ingredient Ointment 1 applic 07/30/18 00:08 Lansinoh TP PRN PRN dryness/cracking Multivitamins/Iron/Calcium 1 each 07/30/18 10:00 08/05/18 08:59 Vitamin PO 1 each QDAY [facility] Administration Naloxone HCl 0.1 mg 07/30/18 00:08 Narcan 0.4 Mg/1 Ml IV Q2MIN PRN Res Rate </= 8 or 02 SAT < 92% Nifedipine 30 mg 08/03/18 13:00 08/05/18 08:58 Procardia Xl PO 30 mg QDAY [facility] Administration Ondansetron HCl 4 mg 07/29/18 22:36 Zofran IV Q8H PRN Nausea And Vomiting Oxycodone/Acetaminophen 2 tab 07/30/18 00:08 08/05/18 20:11 Percocet 5/325 PO 2 tab Q6H PRN Administration Pain, Moderate (4-6) Promethazine HCl 25 mg 07/29/18 22:36 Phenergan PO Q6H PRN Nausea And Vomiting Promethazine HCl 25 mg 07/29/18 22:36 Phenergan NC Q6H PRN Nausea And Vomiting Simethicone 80 mg 07/30/18 15:40 08/02/18 10:25 Mylicon PO 80 mg Q6H PRN Administration Gas pain Sodium Chloride 10 ml 07/30/18 01:00 Sodium Chloride Flush Syringe 10 Ml IV PRN PRN LINE FLUSH Witch Silvia/Glycerin 1 each 07/30/18 00:08 Tucks Pad TP PRN PRN Hemorrhoids/cleansing/soothing
[2018-08-06] MEDS: PROCARDIA XL PO SCH (10:18)
[2018-08-06] MEDS: FEOSOL PO SCH (10:24)
[2018-08-06] MEDS: PRENATAL VITAMIN PO SCH (10:24)
--- NOTE | 2018-08-06 17:18 | Discharge Summary ---
Providers - Providers Date of Admission: 07/29/18 23:00 Date of discharge: 08/06/18 Attending physician: ADRIÁN SIMMONS 08/04/18 13:48 Consult to Physician [CONS] Urgent Comment: Consulting Provider: NEHEMIAS HARRIS Physician Instructions: Reason For Exam: Elevated BP's post Primary care physician: ADRIÁN SIMMONS Hospitalization Reason for admission: section, IUP at term, other (IUP @ 38 0/7 weeks; Preeclampsia; GDM) Delivery: Procedure: section, bilateral tubal ligation, repeat low transverse Episiotomy: none Laceration: none Incision: normal Other procedures: none complications: other (Elevated BP's) Discharge diagnosis: IUP at term delivered [place] baby: female Hospital course: Pt is a 33yo BF EDC 3; EGA 38 0/7 weeks who presented from [facility] for delivery due to elevated BPs in office 153/100 and 166/100. She complained of a headache and extremity swelling. She received care at [facility] since and co-managed by [facility] for LGA, GDM and history of Preeclampsia. She underwent an uncomplicated Repeat C Section with BTL and tolerated the procedure well. By POD #1 her BP's stared to increase, and she received IV Magnesium sulfate followed by PO Labetolol, Procardia and Hydralazine over the next few days to achieve adequate BP with the help of the Hospitalist. By POD #8 her BP's were stable and she was discharged to home on Labetolol 300mg TID; Procardia XL 30mg QD and Hydralazine 25mg TID. She will follow up in the office in 1 week for BP check. Condition at discharge: Good Disposition: DC-01 TO HOME OR SELFCARE - Discharge Diagnoses (1) 38 weeks gestation of Status: Resolved (2) GDM (gestational diabetes mellitus) Status: Resolved Qualifiers: Gestational diabetes mellitus control: oral hypoglycemic-controlled Trimester: third trimester Qualified Code(s): O24.415 - Gestational diabetes mellitus in , controlled by oral hypoglycemic drugs (3) Previous section Status: Resolved (4) Pre-eclampsia affecting puerperium Status: Resolved (5) S/P repeat low transverse Status: Resolved Plan - Discharge Medications Prescriptions: hydrALAZINE [Apresoline TAB] 25 mg PO Q8HR #90 tablet Ferrous Sulfate [Feosol 325 MG tab] 325 mg PO BID #60 tablet Ibuprofen [Motrin] 800 mg PO Q8HR PRN #30 tablet PRN Reason: Pain, Mild (1-3) HYDROcodone/APAP 5-325 [[place] 5/325] 1 each PO Q6HR PRN #30 tablet PRN Reason: Pain , Severe (7-10) Labetalol [Normodyne TAB] 300 mg PO Q8HR #90 tablet Pnv No.95/Ferrous Fum/Folic AC [ Vitamin Tablet] 1 each PO DAILY #30 tablet NIFEdipine XL [Procardia Xl] 30 mg PO QDAY #30 tablet - Provider Discharge Summary Activity: routine, no sex for 6 weeks, no heavy lifting 4 weeks, no strenuous exercise Diet: routine Instructions: routine Additional instructions: [] Smoking cessation referral if applicable(refer to patient education folder for contact #) [] Refer to [facility]'s [facility] Booklet Call your doctor immediately for: * Fever > 100.5 * Heavy vaginal bleeding ( >1 pad per hour) * Severe persistent headache * Shortness of breath * Reddened, hot, painful area to leg or breast * Drainage or odor from incision. * Keep incision clean and dry at all times and follow doctor's instructions regarding bathing/showering Follow up in the office in 1 week for BP check - Follow up plan Follow up: ADRIÁN SIMMONS MD [Primary Care Provider] - 7 Days BUD ARGUELLES CNM [Advanced Practice Nurse] - 7 Days
[2018-08-06 18:32] VITALS: BP 144/91
== END 2018-08-06 19:20 | disposition home or self-care (01) | DRG 787 ==
LOC: TRG 13:11 → APU 23:00 → TRG 23:35 → OB 07-30 01:48 → LD 08-01 16:39 → APU 08-01 20:34 → OB 08-02 21:28
PROVIDERS: ADMIT Obstetrics & Gynecology; ATTEND Obstetrics & Gynecology
PROC: 10D00Z1 Extraction of Products of Conception, Low, Open Approach (ICD-10-PCS; principal; 2018-07-30)
DX: O11.4 Pre-existing hypertension with pre-eclampsia, complicating childbirth (principal); D62 Acute posthemorrhagic anemia; O24.425 Gestational diabetes mellitus in childbirth, controlled by oral hypoglycemic drugs; O34.211 Maternal care for low transverse scar from previous cesarean delivery; Z3A.38 38 weeks gestation of pregnancy; Z37.0 Single live birth; O99.03 Anemia complicating the puerperium
CPT/HCPCS: 36415; 71046; 80048; 81001; 82565; 82962; 83036; 83615; 83735; 84450; 84460; 84550; 85014; 85018; 85025; 85027; 86850; 86900; 86901; 87040; 87086; 90471; 90715; G0378; C9250; J0360; J0690; J1170; J1885; J2370; J2590; J2765; J3475; J7120; J7121

== ENCOUNTER 2018-08-31 16:45 | Emergency (ER) | payer OTHER ==
--- NOTE | 2018-08-31 16:52 | Emergency Department Report ---
Blank Doc - Documentation Documentation: This is a 33-year-old female that presents with right calf pain. Patient is 4 weeks post op. Patient was sent by OBGYN provider Hazel Marion. This initial assessment/diagnostic orders/clinical plan/treatment(s) is/are subject to change based on patient's health status, clinical progression and re- assessment by fellow clinical providers in the ED. Further treatment and workup at subsequent clinical providers discretion. Patient/guardians urged not to elope from the ED as their condition may be serious if not clinically assessed and managed. Initial orders include: 1- Patient sent to [facility] for further evaluation and treatment 2- labs 3- Doppler US
[2018-08-31 17:12] LABS: Basophils # (Auto) 0.1 K/mm3 (0.0-0.1); Basophils % (Auto) 0.9 % (0.0-1.8); Eosinophils # (Auto) 0.1 K/mm3 (0.0-0.4); Hematocrit 34.2 % (30.3-42.9); Hemoglobin 11.2 gm/dl (10.1-14.3); Lymphocytes # (Auto) 1.4 K/mm3 (1.2-5.4); Lymphocytes % (Auto) 23.6 % (13.4-35.0); Mean Corpuscular HGB Conc 33 % (30-34); Mean Corpuscular Volume 80 fl (79-97); Monocytes # (Auto) 0.4 K/mm3 (0.0-0.8); Monocytes % (Auto) 7.4 % (0.0-7.3); Platelet Count 341 K/mm3 (140-440); Red Blood Count 4.29 M/mm3 (3.65-5.03); Red Cell Distribution Width 19.9 % (13.2-15.2)
[2018-08-31 17:40] LABS: BUN/Creatinine Ratio 8; Blood Urea Nitrogen 6 mg/dL (7-17); Hemolysis Index 2
--- NOTE | 2018-08-31 18:54 | Vascular Lab Report ---
PROCEDURE: VL VENOUS DUPLEX LE RT TECHNIQUE: Bilateral lower extremity deep venous ultrasound HISTORY: right leg pain COMPARISONS: FINDINGS: Ultrasound deep venous system of bilateral lower extremities from the common femoral through the visu alized proximal calf veins demonstrates normal sonographic appearance. There is normal compressibilit y and normal vascular flow on pulsed and color Doppler evaluation with normal venous waveform IMPRESSION: No evidence for deep venous thrombosis. This document is electronically signed by Abdirizak Davalos MD., August 31 2018 06:52:05 PM ET
--- NOTE | 2018-08-31 21:00 | Emergency Department Report ---
ED Recheck HPI - General Chief Complaint: Extremity Problem,Nontraumatic Stated Complaint: POSS BLOOD CLOT Time Seen by Provider: 08/31/18 16:51 Source: patient Mode of arrival: Ambulatory Limitations: No Limitations - History of Present Illness Initial Comments: Patient is a pleasant 33-year-old who was sent here today from Dr. Dove's office for an ultrasound to rule out DVT. She complains of a very localized small area of pain behind her right calf. Pain seems to be worse with movement such as when she was driving. She was not tachycardic, hypotensive or hypoxic. -: Gradual, days(s) - Related Data Home Medications Medication Instructions Recorded Confirmed Last Taken Labetalol [Normodyne TAB] 150 mg PO Q8HR 08/31/18 Unknown Previous Rx's Medication Instructions Recorded Last Taken Type Ferrous Sulfate [Feosol 325 MG tab] 325 mg PO BID #60 tablet 07/29/18 Unknown Rx Pnv No.95/Ferrous Fum/Folic AC 1 each PO DAILY #30 tablet 07/29/18 Unknown Rx [ Vitamin Tablet] NIFEdipine XL [Procardia Xl] 30 mg PO QDAY #30 tablet 08/06/18 Unknown Rx hydrALAZINE [Apresoline TAB] 25 mg PO Q8HR #90 tablet 08/06/18 Unknown Rx Allergies Allergy/AdvReac Type Severity Reaction Status Date / Time doxycycline Allergy Unknown Verified 07/23/14 10:20 magnesium sulfate Allergy Unknown Verified 08/31/18 16:54 sulfamethoxazole Allergy Itching Verified 07/23/14 10:20 [From Bactrim] trimethoprim [From Bactrim] Allergy Itching Verified 07/23/14 10:20 ED Review of Systems ROS: Stated complaint: POSS BLOOD CLOT Other details as noted in HPI Comment: All other systems reviewed and negative ED Past Medical Hx - Past Medical History Previous Medical History?: Yes Hx Hypertension: (PIH) Hx Diabetes: No Hx Deep Vein Thrombosis: No Hx Renal Disease: Yes (hx kidney stones) Hx Sickle Cell Disease: No Hx Seizures: No Hx Asthma: Yes (inhaler- last used in spring) Hx HIV: No Additional medical history: preclampcia, hyperemesis,tahira risk - Surgical History Past Surgical History?: Yes Additional Surgical History: - Family History Family history: no significant - Social History Smoking Status: Never Smoker Substance Use Type: None - Medications Home Medications: Home Medications Medication Instructions Recorded Confirmed Last Taken Type Ferrous Sulfate [Feosol 325 MG tab] 325 mg PO BID #60 tablet 07/29/18 08/31/18 Unknown Rx Pnv No.95/Ferrous Fum/Folic AC 1 each PO DAILY #30 tablet 07/29/18 08/31/18 Unknown Rx [ Vitamin Tablet] NIFEdipine XL [Procardia Xl] 30 mg PO QDAY #30 tablet 08/06/18 08/31/18 Unknown Rx hydrALAZINE [Apresoline TAB] 25 mg PO Q8HR #90 tablet 08/06/18 08/31/18 Unknown Rx Labetalol [Normodyne TAB] 150 mg PO Q8HR 08/31/18 Unknown History ED Physical Exam - General Limitations: No Limitations General appearance: alert - Head Head exam: Present: atraumatic, normocephalic - Eye Eye exam: Present: normal appearance, PERRL, EOMI - ENT ENT exam: Present: mucous membranes moist - Neck Neck exam: Present: normal inspection, full ROM - Respiratory Respiratory exam: Present: normal lung sounds bilaterally - Cardiovascular Cardiovascular Exam: Present: regular rate - GI/Abdominal GI/Abdominal exam: Present: soft, normal bowel sounds - Extremities Exam Extremities exam: Present: normal inspection, full ROM, normal capillary refill, other (pain seems worse with movement such as when driving. Negative Homans.). Absent: tenderness, pedal edema, joint swelling, calf tenderness - Back Exam Back exam: Present: normal inspection, full ROM - Neurological Exam Neurological exam: Present: alert, oriented X3, CN II-XII intact - Psychiatric Psychiatric exam: Present: normal affect, normal mood - Skin Skin exam: Present: warm, dry, intact ED Course Vital Signs 08/31/18 16:51 Temperature 98.5 F Pulse Rate 95 H Respiratory 18 Rate Blood Pressure 132/84 O2 Sat by Pulse 100 Oximetry ED Recheck MDM - Core Measures Measure Exclusions: not indicated - Medical Decision Making US NEG FOR DVT LABS NOTED NO HYPOXIA, HR 90, NO HYPOTENSION WILL DC HOME TO FOLLOW UP WITH DR DOVE Labs 08/31/18 08/31/18 16:58 16:58 WBC 6.1 RBC 4.29 Hgb 11.2 Hct 34.2 MCV 80 MCH 26 L MCHC 33 RDW 19.9 H Plt Count 341 Lymph % (Auto) 23.6 [place] % (Auto) 7.4 H Eos % (Auto) 1.0 Baso % (Auto) 0.9 Lymph # 1.4 [place] # 0.4 Eos # 0.1 Baso # 0.1 Seg Neutrophils % 67.1 Seg Neutrophils # 4.1 Sodium 139 Potassium 3.9 Chloride 102.6 Carbon Dioxide 25 Anion Gap 15 BUN 6 L Creatinine 0.8 Estimated GFR > 60 BUN/Creatinine Ratio 8 Glucose 79 Calcium 10.0 Vital Signs 08/31/18 16:51 Temperature 98.5 F Pulse Rate 95 H Respiratory 18 Rate Blood Pressure 132/84 O2 Sat by Pulse 100 Oximetry Critical care attestation.: If time is entered above; I have spent that time in minutes in the direct care of this critically ill patient, excluding procedure time. ED Disposition Clinical Impression: Leg pain Disposition: DC-01 TO HOME OR SELFCARE Is pt being admited?: No Does the pt Need Aspirin: No Condition: Stable Additional Instructions: FOLLOW UP WITH DR DOVE IN AM Referrals: PRIMARY CARE, [Primary Care Provider] - 3-5 Days Time of Disposition: 21:00
[2018-08-31 21:06] VITALS: BP 128/78
== END 2018-08-31 21:08 | disposition home or self-care (01) ==
LOC: ED 16:45
DX: M79.661 Pain in right lower leg (principal); J45.909 Unspecified asthma, uncomplicated; Z88.8 Allergy status to other drugs, medicaments and biological substances; Z88.2 Allergy status to sulfonamides
CPT/HCPCS: 36415; 80048; 85025